=== PATIENT | female | born 1960 | race Caucasian/White ===

== ENCOUNTER 2016-12-12 14:04 | Emergency (ER) | payer MEDICARE, OTHER ==
[2016-12-12 14:04] VITALS: BMI 24.0
[2016-12-12 14:13] VITALS: BP 144/93; PULSE 75; RESP 16; TEMP 98.7; O2SAT 100
[2016-12-12 14:58] LABS: HEMATOCRIT 39.8 % (34.0-47.0); MEAN CELL VOLUME 82.4 fl (81.0-99.0); RED CELL DISTRIBUTION WIDTH 14.1 % (11.5-14.5); WHITE BLOOD COUNT 9.9 K/uL (4.8-10.8)
[2016-12-12 15:08] LABS: ALB/GLOB RATIO 1.2 (1.0-2.1); ALKALINE PHOSPHATASE 75 U/L (38-126); ALT/SGPT 18 U/L (9-52); AST/SGOT 28 U/L (14-36); BILIRUBIN,TOTAL 0.6 mg/dl (0.2-1.3); BLOOD UREA NITROGEN 11 mg/dl (7-17); CALCIUM 9.7 mg/dL (8.4-10.2); CARBON DIOXIDE 26 mmol/L (22-30); CHLORIDE 102 mmol/L (98-107); GFR AFRICAN-AMERICAN > 60; GLUCOSE,RANDOM 237 mg/dL (65-105); POTASSIUM 4.4 MMOL/L (3.6-5.0); SODIUM 142 mmol/l (132-148); TOTAL PROTEIN 7.4 G/DL (6.3-8.2)
[2016-12-12 16:09] LABS: RBC URINE 1 /hpf (0-3); URINE BILIRUBIN NEGATIVE (NEGATIVE); URINE BLOOD NEGATIVE (NEGATIVE); URINE COLOR YELLOW (YELLOW); URINE GLUCOSE (UA) >=500 mg/dL (Normal); URINE KETONE NEGATIVE (NEGATIVE); URINE LEUKOCYTE ESTERASE NEG Leu/uL (Negative); URINE PROTEIN NEGATIVE (NEGATIVE); URINE UROBILINOGEN 0.2-1.0 mg/dL (0.2-1.0)
--- NOTE | 2016-12-12 16:20 | ED PDOC ---
Syncope/Near Syncope/Dizzyness Time Seen by Provider: 12/12/16 14:27 Chief Complaint (Nursing): Dizziness/Lightheaded Chief Complaint (Provider): Dizziness History Per: Patient History/Exam Limitations: no limitations Onset/Duration Of Symptoms: Days (x2), Intermittent Episodes Current Symptoms Are (Timing): Still Present Fall Associated With With Symptoms: No Additional Complaint(s): Akanksha Diggs is a 56 year old female, with a past medical history inclusive of CAD, HTN, hypercholesterolemia, type II diabetes and Alzheimer's Dementia, who presents to the ED on 12/12/16, via EMS, for the evaluation of intermittent dizziness that she has experienced x2 days. History may be unreliable as secondary to patient's baseline mental status. Sensation, further described as "room spinning" is reportedly worse with laying down and has been occurring more frequently, prompting ED visit. Some nausea and upper abdominal pain also reported, in addition to a mildly productive cough. Denies fever, chills, headache, vision changes, chest pain, shortness of breath, vomiting, diarrhea or focal extremity weakness/numbness. PMD: none Past Medical History Reviewed: Historical Data, Nursing Documentation, Vital Signs Vital Signs: Last Vital Signs Temp 98.7 F 12/12/16 14:10 Pulse 75 12/12/16 14:10 Resp 16 12/12/16 14:10 BP 144/93 H 12/12/16 14:10 Pulse Ox 100 12/12/16 14:10 - Medical History PMH: Alzheimer's Disease, Asthma, CAD, Dementia, Diabetes (type II), HTN, Hypercholesterolemia, TIA Denies: HIV, Chronic Kidney Disease - Surgical History Surgical History: Hernia Repair (ventral, inguinal), (x3) - Family History Family History: States: Unknown Family Hx - Immunization History Hx Tetanus Toxoid Vaccination: No Hx Influenza Vaccination: No Hx Pneumococcal Vaccination: No - Home Medications Home Medications: Ambulatory Orders Medication Instructions Recorded Ergocalciferol (Vitamin D2) 50,000 unit PO ASDIR 09/02/14 [Vitamin D2] Aspirin [Aspirin EC] 81 mg PO DAILY #0 ect 09/03/14 Cyanocobalamin (Vitamin B-12) 1 tab PO DAILY #0 tab 09/03/14 [Vitamin B-12] Donepezil Hydrochloride [Aricept] 5 mg PO DAILY #0 tab 09/03/14 Glyburide/Metformin HCl 1 tab PO BID #0 tab 09/03/14 [Glyburide-Metformin 2.5-500 mg] Metoprolol Tartrate 25 mg PO DAILY #0 tab 09/03/14 Omeprazole 40 mg PO DAILY #0 ecc 09/03/14 Simvastatin [Zocor] 20 mg PO DAILY #0 tab 09/03/14 Zolpidem Tartrate [Ambien] 10 mg PO HS PRN #0 tab 09/03/14 Fexofenadine/Pseudoephedrine 1 each PO Q12H PRN #20 tab.er.12h 01/03/16 [Maribell-D 12 Hour Tablet] Flexeril 10 mg PO TID 01/03/16 Gabapentin [Neurontin] 1 tab PO DAILY 01/03/16 Lisinopril [Zestril] 1 tab PO DAILY 01/03/16 Sitagliptin Phosphate [Januvia] 1 tab PO DAILY 01/03/16 Dicyclomine [Dicyclomine HCl] 10 mg PO BID #12 cap 01/12/16 Ondansetron ODT [Zofran ODT] 4 mg PO Q8 PRN #12 odt 01/12/16 Ibuprofen [Motrin] 600 mg PO TID 7 Days 01/16/16 Meclizine [Meclizine*] 25 mg PO Q8 PRN #12 tab 07/18/16 Ondansetron [Zofran] 4 mg PO Q6H PRN #10 tab 07/18/16 Meclizine [Meclizine*] 25 mg PO Q6 PRN #30 tab 12/12/16 - Allergies Allergies/Adverse Reactions: Allergies Allergy/AdvReac Type Severity Reaction Status Date / Time iodine Allergy Verified 06/13/16 13:07 Penicillins Allergy Verified 06/13/16 13:07 Review of Systems ROS Statement: Except As Marked, All Systems Reviewed And Found Negative Constitutional: Negative for: Fever, Chills Eyes: Negative for: Vision Change Cardiovascular: Negative for: Chest Pain Respiratory: Positive for: Cough, Sputum. Negative for: Shortness of Breath Gastrointestinal: Positive for: Nausea, Abdominal Pain (upper). Negative for: Vomiting, Diarrhea Neurological: Positive for: Dizziness. Negative for: Weakness, Numbness, Headache Physical Exam - Reviewed Nursing Documentation Reviewed: Yes Vital Signs Reviewed: Yes - Physical Exam Appears: Positive for: Non-toxic, No Acute Distress Head Exam: Positive for: ATRAUMATIC, NORMOCEPHALIC Skin: Positive for: Normal Color, Warm, Dry Eye Exam: Positive for: Normal appearance, EOMI, PERRL. Negative for: Nystagmus ENT: Positive for: Normal ENT Inspection (moist mucous membranes) Neck: Positive for: Normal, Painless ROM, Supple Cardiovascular/Chest: Positive for: Regular Rate, Rhythm. Negative for: Murmur Respiratory: Positive for: Normal Breath Sounds. Negative for: Respiratory Distress Gastrointestinal/Abdominal: Positive for: Normal Exam, Soft. Negative for: Tenderness, Mass, Guarding, Rebound Back: Positive for: Normal Inspection Extremity: Positive for: Normal ROM (FROM x4 extremities). 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 Negative for: Motor/Sensory Deficits, Aphasia, Facial Droop - Laboratory Results Result Diagrams: 12/12/16 14:40 12/12/16 14:40 - ECG O2 Sat by Pulse Oximetry: 100 (RA) Pulse Ox Interpretation: Normal Medical Decision Making Medical Decision Makin:27 Initial Impression: dizziness, cough Initial Plan: * EKG * CXR * Labs * Troponin I * Urinalysis * Urine Culture * Meclizine 50mg PO * Reevaluation * Pt reports feeling dizzy on re-evaluation after meclizine. Discussed with Dr. Hall. Ativan ordered. 19:50 Pt reports feeling much better. Discussed d/c with Dr. Vohra. Moreno to discharge if CT normal. Scribe Attestation: Documented by Michelle Garcia, acting as a scribe for Michelle Ellison PA-C. Provider Scribe Attestation: All medical record entries made by the Scribe were at my direction and personally dictated by me. I have reviewed the chart and agree that the record accurately reflects my personal performance of the history, physical exam, medical decision making, and the department course for this patient. I have also personally directed, reviewed, and agree with the discharge instructions and disposition. Disposition - Clinical Impression Clinical Impression: Vertigo - Patient ED Disposition Is Patient to be Admitted: Transfer of Care - Disposition Disposition: Routine/Home Disposition Time: 19:51 Condition: GOOD Prescriptions: Meclizine [Meclizine*] 25 mg PO Q6 PRN #30 tab PRN Reason: Dizziness Instructions: Vertigo (ED)
--- NOTE | 2016-12-12 20:05 | CARD ---
APPROVED REPORT EKG Measurement Heart [id number] <Conclusion> Normal sinus rhythm Normal ECG
== END 2016-12-12 20:57 | disposition home or self-care (01) ==
LOC: H.ER 14:04
DX: R42 Dizziness and giddiness (principal); I10 Essential (primary) hypertension; E78.00 Pure hypercholesterolemia, unspecified; E11.9 Type 2 diabetes mellitus without complications; G30.9 Alzheimer's disease, unspecified; I25.10 Atherosclerotic heart disease of native coronary artery without angina pectoris; Z79.82 Long term (current) use of aspirin; Z86.73 Personal history of transient ischemic attack (TIA), and cerebral infarction without residual deficits; R10.10 Upper abdominal pain, unspecified; R11.0 Nausea; R05 Cough

== ENCOUNTER 2017-03-27 20:06 | Inpatient (IN) | payer MEDICARE, MEDICAID ==
[2017-03-27 20:07] VITALS: BMI 24.0
[2017-03-27 20:35] VITALS: O2SAT 99
--- NOTE | 2017-03-27 21:46 | ED PDOC ---
HPI: Headache Time Seen by Provider: 03/27/17 21:03 Chief Complaint (Nursing): Headache Chief Complaint (Provider): Headache History Per: Patient History/Exam Limitations: no limitations Onset/Duration Of Symptoms: Days (3) Current Symptoms Are (Timing): Still Present Associated Symptoms: Photophobia Additional Complaint(s): The patient is a 57yo female, Past medical history of Hypertension, DM, presents to the ED for evaluation of headache radiating to her neck, with associated weakness and photophobia. Patient reports her pain as stabbing and worsening over the days; patient reports she has had similar symptoms in the past and has had CT scan's of her head. Patient also reports for the past week, she has had visual and auditory hallucinations; she denies any drug usage. Patient also admits to suicidal ideation in the past. Currently, offers no additional medical complaints. Past Medical History Reviewed: Historical Data, Nursing Documentation, Vital Signs Vital Signs: Last Vital Signs Temp 97.9 F 03/27/17 20:30 Pulse 77 03/27/17 20:30 Resp 18 03/27/17 20:30 BP 139/82 03/27/17 20:30 Pulse Ox 99 03/27/17 20:30 - Medical History PMH: Alzheimer's Disease, Asthma, CAD, Dementia, Diabetes (type II), HTN, Hypercholesterolemia, TIA Denies: HIV, Chronic Kidney Disease - Surgical History Surgical History: Hernia Repair (ventral, inguinal), (x3) - Family History Family History: States: Unknown Family Hx - Immunization History Hx Tetanus Toxoid Vaccination: No Hx Influenza Vaccination: No Hx Pneumococcal Vaccination: No - Home Medications Home Medications: Ambulatory Orders Medication Instructions Recorded Ergocalciferol (Vitamin D2) 50,000 unit PO ASDIR 09/02/14 [Vitamin D2] Aspirin [Aspirin EC] 81 mg PO DAILY #0 ect 09/03/14 Cyanocobalamin (Vitamin B-12) 1 tab PO DAILY #0 tab 09/03/14 [Vitamin B-12] Donepezil Hydrochloride [Aricept] 5 mg PO DAILY #0 tab 09/03/14 Glyburide/Metformin HCl 1 tab PO BID #0 tab 09/03/14 [Glyburide-Metformin 2.5-500 mg] Metoprolol Tartrate 25 mg PO DAILY #0 tab 01/01/15 Omeprazole 40 mg PO DAILY #0 ecc 09/03/14 Simvastatin [Zocor] 20 mg PO DAILY #0 tab 09/03/14 Zolpidem Tartrate [Ambien] 10 mg PO HS PRN #0 tab 09/03/14 Fexofenadine/Pseudoephedrine 1 each PO Q12H PRN #20 tab.er.12h 01/03/16 [Maribell-D 12 Hour Tablet] Flexeril 10 mg PO TID 01/03/16 Gabapentin [Neurontin] 1 tab PO DAILY 01/03/16 Lisinopril [Zestril] 1 tab PO DAILY 01/03/16 Sitagliptin Phosphate [Januvia] 1 tab PO DAILY 01/03/16 Dicyclomine [Dicyclomine HCl] 10 mg PO BID #12 cap 01/12/16 Ondansetron ODT [Zofran ODT] 4 mg PO Q8 PRN #12 odt 01/12/16 Ibuprofen [Motrin] 600 mg PO TID 7 Days 01/16/16 Meclizine [Meclizine*] 25 mg PO Q8 PRN #12 tab 07/18/16 Ondansetron [Zofran] 4 mg PO Q6H PRN #10 tab 07/18/16 Meclizine [Meclizine*] 25 mg PO Q6 PRN #30 tab 12/12/16 Albuterol HFA [Ventolin HFA 90 2 puff IH [id number] PRN #1 pkg 01/17/17 mcg/actuation (8 g)] predniSONE [Prednisone] 40 mg PO DAILY #4 tab 01/17/17 - Allergies Allergies/Adverse Reactions: Allergies Allergy/AdvReac Type Severity Reaction Status Date / Time iodine Allergy Verified 06/13/16 13:07 Penicillins Allergy Verified 06/13/16 13:07 Review of Systems ROS Statement: Except As Marked, All Systems Reviewed And Found Negative Constitutional: Positive for: Weakness Musculoskeletal: Positive for: Neck Pain Neurological: Positive for: Headache Psych: Positive for: Suicidal ideation, Other (auditory and visual hallucinations) Physical Exam - Reviewed Nursing Documentation Reviewed: Yes Vital Signs Reviewed: Yes - Physical Exam Appears: Positive for: Non-toxic Head Exam: Positive for: ATRAUMATIC, NORMAL INSPECTION, NORMOCEPHALIC Skin: Positive for: Normal Color, Warm, DRY Eye Exam: Positive for: EOMI, Normal appearance, PERRL Neck: Positive for: Normal, Supple Cardiovascular/Chest: Positive for: Regular Rate, Rhythm Respiratory: Positive for: Normal Breath Sounds. Negative for: Respiratory Distress Gastrointestinal/Abdominal: Positive for: Normal Exam, Soft. Negative for: Tenderness Extremity: Positive for: Normal ROM Neurologic/Psych: Positive for: Alert, head of acquisitions II-XII, Oriented, Mood/Affect ( Tearful), Other (+ Feelings of depression). Negative for: Motor/Sensory Deficits - Laboratory Results Result Diagrams: 03/27/17 23:03 03/27/17 23:03 - ECG O2 Sat by Pulse Oximetry: 99 (RA) Pulse Ox Interpretation: Normal Medical Decision Making Medical Decision Making: Time: 2114 Impression: Headache, crisis eval Plan: -- CT Head -- Labs -- Chest x-ray -- 1:1 obs Reassess [id number] * ED OBS ADMISSION All further documentation will take place in the ED OBS note. Scribe Attestation: Documented by Antonella Verma acting as a scribe for Elva Jackson MD. Provider Attestation: All medical record entries made by the Scribe were at my direction and personally dictated by me. I have reviewed the chart and agree that the record accurately reflects my personal performance of the history, physical exam, medical decision making, and the department course for this patient. I have also personally directed, reviewed, and agree with the discharge instructions and disposition. ED OBSERVATION Date of observation admission: 03/27/17 Time of observation admission: 23:00 - Observation admission statement Patient is being placed in observation because:: Pending medical clearance and crisis eval - Goals of Observation Goals of observation are:: Crisis eval and medical clearanc - Progress Note Progress Note: 03/27/17 23:46 Chest x-ray read by provider: NAD Patient is medically cleared/stable for psychiatric evaluation. Disposition - Clinical Impression Clinical Impression: Depression - Disposition Disposition: Transfer of Care Disposition Time: 00:00 Condition: STABLE Patient Signed Over To: Dustin Montoya Y Handoff Comments: Pending Crisis evaluation. - Pt Status Changed To: Hospital Disposition Of: Observation
[2017-03-27 22:57] LABS: RBC URINE 2 /hpf (0-3); URINE BILIRUBIN NEGATIVE (NEGATIVE); URINE BLOOD NEGATIVE (NEGATIVE); URINE COLOR YELLOW (YELLOW); URINE GLUCOSE (UA) NEG (Normal); URINE KETONE NEGATIVE (NEGATIVE); URINE LEUKOCYTE ESTERASE NEG Leu/uL (Negative); URINE PROTEIN NEGATIVE (NEGATIVE); URINE UROBILINOGEN 0.2-1.0 mg/dL (0.2-1.0); WBC URINE < 1 /hpf (0-5)
--- NOTE | 2017-03-27 23:02 | CT ---
EXAM: CT Head Without Intravenous Contrast CLINICAL HISTORY: 57 years old, female; Pain and signs and symptoms; Dizziness; Headache; Headache not specified; Additional info: PEREZ. Sent prior report TECHNIQUE: Axial computed tomography images of the head/brain without intravenous contrast. This CT exam was performed using one or more of the following dose reduction techniques: automated exposure control, adjustment of the mA and/or kV according to patient size, and/or use of iterative reconstruction technique. Coronal and sagittal reformatted images were created and reviewed. COMPARISON: CT - HEAD W/O CONTRAST 07/18/2016 5:18:36 PM FINDINGS: Brain: Minimal atrophy. No intracranial hemorrhage. No mass. Minimal decreased attenuation within periventricular white matter. No definite edema. Ventricles: No hydrocephalus. Bones/joints: No acute fracture. Soft tissues: Unremarkable. Sinuses: No acute sinusitis. Mastoid air cells: No mastoid effusion. Orbits: Unremarkable as visualized. IMPRESSION: 1. Nonspecific white matter changes. Acute infarction may be CT occult within first 24 hours. If a focal deficit persists, consider followup CT or MRI for further evaluation. 2. Incidental/non-acute findings are described above.
[2017-03-27 23:07] LABS: BASO % 0.6 % (0.0-2.0); EOS # 0.1 K/uL (0.0-0.7); EOS % 1.6 % (0.0-4.0); HEMATOCRIT 38.5 % (34.0-47.0); LYMPH # 3.8 K/uL (1.0-4.3); LYMPH % 49.1 % (20.0-40.0); MEAN CELL VOLUME 84.1 fl (81.0-99.0); MEAN CORPUSCULAR HEMOGLOBIN 28.6 pg (27.0-31.0); MEAN PLATELET VOLUME 11.2 fl (7.2-11.7); MONO # 0.5 K/uL (0.0-0.8); MONO % 6.1 % (0.0-10.0); NEUT # 3.3 K/uL (1.8-7.0); NEUT % 42.6 % (50.0-75.0); NRBC % 0.1 % (0.0-0.0); WHITE BLOOD COUNT 7.8 K/uL (4.8-10.8)
[2017-03-27 23:19] LABS: ALB/GLOB RATIO 1.5 (1.0-2.1); ALCOHOL SERUM < 10 mg/dl (0-10); ALKALINE PHOSPHATASE 64 U/L (38-126); ALT/SGPT 33 U/L (9-52); AST/SGOT 20 U/L (14-36); BILIRUBIN,TOTAL 0.3 mg/dl (0.2-1.3); BLOOD UREA NITROGEN 12 mg/dl (7-17); CALCIUM 9.2 mg/dL (8.4-10.2); CARBON DIOXIDE 22 mmol/L (22-30); CHLORIDE 109 mmol/L (98-107); GFR AFRICAN-AMERICAN > 60; GLUCOSE,RANDOM 96 mg/dL (65-105); POTASSIUM 3.9 MMOL/L (3.6-5.0); SODIUM 142 mmol/l (132-148); TOTAL PROTEIN 6.9 G/DL (6.3-8.2)
--- NOTE | 2017-03-28 00:28 | ED PDOC ---
- Laboratory Results Result Diagrams: 03/27/17 23:03 03/27/17 23:03 - ECG O2 Sat by Pulse Oximetry: 99 (RA) Medical Decision Making Medical Decision Makin Patient signed out to me from Dr. Jackson pending crisis eval. [address] Lanier for depression. ASA and Tylenol levels: negative Scribe Attestation: Documented by Anita Love acting as a scribe for Dustin Montoya MD. Scribe Attestation: All medical record entries made by the Scribe were at my direction and personally dictated by me. I have reviewed the chart and agree that the record accurately reflects my personal performance of the history, physical exam, medical decision making, and the department course for this patient. I have also personally directed, reviewed, and agree with the discharge instructions and disposition. Disposition Counseled Patient/Family Regarding: Studies Performed, Diagnosis - Clinical Impression Clinical Impression: Depression - POA Present On Arrival: None - Disposition Disposition: Admitted as In-Patient (under Dr. Lanier) Disposition Time: 01:00 Condition: FAIR
[2017-03-28] MEDS ORDERED: Magnesium Hydroxide Susp 30 ml UD PO PRN (07:07)
[2017-03-28] MEDS ORDERED: DiphenhydrAMINE 50 mg/ml Inj IM PRN (07:07)
[2017-03-28 09:00] LABS: T4 7.65 ug/dl (5.5-11.0)
--- NOTE | 2017-03-28 11:13 | RAD ---
HISTORY: Medical clearance COMPARISON: PRIOR CHEST RADIOGRAPHS 09/02/2014. TECHNIQUE: Chest PA and lateral FINDINGS: LUNGS: No active pulmonary disease. PLEURA: No significant pleural effusion identified. No pneumothorax apparent. CARDIOVASCULAR: Normal. OSSEOUS STRUCTURES: No significant abnormalities. VISUALIZED UPPER ABDOMEN: Normal. OTHER FINDINGS: None. IMPRESSION: No bilateral cardiopulmonary disease appreciated or significant interval change compared to 09/02/2014 chest radiographs. Yes.
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
--- NOTE | 2017-03-28 13:23 | CARD ---
APPROVED REPORT EKG Measurement Heart [id number] <Conclusion> Normal sinus rhythm Low voltage QRS Borderline ECG
[2017-03-28] MEDS ORDERED: Albuterol HFA 90 mcg/actuation (8 g) IH PRN (16:25)
[2017-03-28] MEDS ORDERED: Patient's Own Med (Glyburide/Metformin Hcl [Glyburide-Metformin 2.5-500 Mg] 1 TAB) PO SCH (17:00)
--- NOTE | 2017-03-28 18:13 | CP.PCM.CON ---
History of Present Illness - History of Present Illness History of Present Illness: Mega Mae, ID: [id number] Pt is a 57 yo F with PMH diabetes, HTN, HLD, CAD s/p cardiac cath, asthma, arthritis, alzheimers who presented to ED with complaints of headache radiating to the neck and shoulders. Pain is described as pulsating 8/10, started 5 days ago. Sitting in a dark room alleviates pain, loud noises and light aggravate pain, no associated symptoms. Pt reports that she tried advil and tylenol with no relief. Pt reports that the pain started after she had a lot of stress in the home, when she thinks too much about her issues in the home with her son and . States that she overall feels weak. Due to pt's mood and behavior during interview (appeared disinterested in speaking to historic interpreter and listening to historic interpreter), reliability of patient as a historian is questionable. PMH: Alzheimers, HTN, HLD, asthma, arthritis, Allergies: penicillin (anaphylactic as per pt description "can't breathe and lose consciousness") Social Hx: former smoker for over 20 yrs social EtOH 2-3 drinks on social occasion denies drugs, painkillers Surg Hx: x3, hernia repair Family Hx: grandmother and mother- stroke. sister- [place]. LMP- 20 y ago, . ED course: vitals stable in ED EKG, CXR unremarkable CT head: nonspecific white matter changes. acute infarction may be CT occult within 24 hrs. If focal deficit persists, consider followup CT or MRI. Review of Systems - Review of Systems All systems: reviewed and no additional remarkable complaints except - Constitutional Constitutional: Weakness Additional comments: generalized weakness - EENT Eyes: absent: Change in Vision Additional comments: thinks eyes are "puffy" - Respiratory Respiratory: absent: Dyspnea Additional comments: SOB when asthma acts up, relief with inhaler - Gastrointestinal Gastrointestinal: Constipation - Neurological Neurological: absent: Lack of Coordination - Psychiatric Psychiatric: Depression Past Patient History - Infectious Disease Hx of Infectious Diseases: None - Tetanus Immunizations Tetanus Immunization: Unknown - Past Medical History & Family History Past Medical History?: Yes - Past Social History Smoking Status: Former Smoker Alcohol: Occasional Drugs: Denies - CARDIAC Hx Cardiac Disorders: Yes Hx Hypertension: Yes - PULMONARY Hx Respiratory Disorders: Yes Hx Asthma: Yes - NEUROLOGICAL Hx Neurological Disorder: Yes Hx Alzheimer's Disease: Yes Hx Dementia: Yes Hx Transient Ischemic Attacks (TIA): Yes - HEENT Hx HEENT Problems: No - RENAL Hx Chronic Kidney Disease: No - ENDOCRINE/METABOLIC Hx Endocrine Disorders: Yes Hx Diabetes Mellitus Type 2: Yes - HEMATOLOGICAL/ONCOLOGICAL Hx Blood Disorders: No Hx Human Immunodeficiency Virus (HIV): No - INTEGUMENTARY Hx Dermatological Problems: No - MUSCULOSKELETAL/RHEUMATOLOGICAL Hx Musculoskeletal Disorders: Yes Hx Falls: No Hx Osteoarthritis: Yes - GASTROINTESTINAL Hx Gastrointestinal Disorders: Yes Other/Comment: Hernia - GENITOURINARY/GYNECOLOGICAL Hx Genitourinary Disorders: No - PSYCHIATRIC Hx Substance Use: No - SURGICAL HISTORY Hx Cardiac Catheterization: Yes (8-10YRS AGO) Hx Section: Yes (X3) Hx Herniorrhaphy: Yes Hx Hysterectomy: Yes Other/Comment: Fibroids - ANESTHESIA Hx Anesthesia: Yes Hx Anesthesia Reactions: No Hx Malignant Hyperthermia: No Meds Allergies/Adverse Reactions: Allergies Allergy/AdvReac Type Severity Reaction Status Date / Time iodine Allergy Verified 06/13/16 13:07 Penicillins Allergy Verified 06/13/16 13:07 - Medications Medications: Current Medications Acetaminophen (Tylenol 325mg Tab) 650 mg PO Q4 PRN PRN Reason: Pain, moderate (4-7) Last Admin: 03/28/17 13:58 Dose: 650 mg Al Hydrox/Mg Hydrox/Simethicone (Maalox Plus 30 Ml) 30 ml PO Q4 PRN PRN Reason: Dyspepsia Albuterol (Ventolin Hfa 90 Mcg/Actuation (8 G)) 2 puff IH Q6H PRN PRN Reason: Shortness of Breath Atorvastatin Calcium (Lipitor) 10 mg PO DAILY [facility] Diphenhydramine HCl (Benadryl) 50 mg IM Q6 PRN PRN Reason: Extrapyramidal S/S Unable PO Diphenhydramine HCl (Benadryl) 50 mg PO Q6 PRN PRN Reason: Extrapyramidal Symptoms Donepezil HCl (Aricept) 5 mg PO DAILY [facility] Glyburide (Micronase) 2.5 mg PO BID [facility] Last Admin: 03/28/17 17:35 Dose: 2.5 mg Haloperidol (Haldol) 5 mg PO Q4 PRN PRN Reason: Agitation Haloperidol Lactate (Haldol) 5 mg IM Q4 PRN PRN Reason: Agitation, Unable to Take PO Lisinopril (Zestril) 20 mg PO DAILY [facility] Lorazepam (Ativan) 2 mg IM Q4 PRN PRN Reason: Anxiety/Agitation,Unable PO Lorazepam (Ativan) 2 mg PO Q4 PRN PRN Reason: Anxiety/Agitation Magnesium Hydroxide (Milk Of Magnesia) 30 ml PO HS PRN PRN Reason: Constipation Metformin HCl (Glucophage) 500 mg PO BID [facility] Last Admin: 03/28/17 17:35 Dose: 500 mg Metoprolol Succinate (Toprol Xl) 25 mg PO DAILY [facility] Quetiapine Fumarate (Seroquel) 25 mg PO HS [facility] Sertraline HCl (Zoloft) 25 mg PO DAILY [facility] Last Admin: 03/28/17 13:56 Dose: 25 mg Sitagliptin Phosphate (Januvia) 100 mg PO DAILY [facility] Physical Exam - Constitutional Appears: Unkempt, Agitated Additional comments: tearful, appeared annoyed at interview, disinterested in speaking and clarifying statements - Head Exam Head Exam: ATRAUMATIC, NORMAL INSPECTION - Eye Exam Eye Exam: EOMI, PERRL - ENT Exam ENT Exam: Mucous Membranes Moist - Respiratory Exam Respiratory Exam: Clear to Auscultation Bilateral, NORMAL BREATHING PATTERN - Cardiovascular Exam Cardiovascular Exam: REGULAR RHYTHM, +S1, +S2 - GI/Abdominal Exam GI & Abdominal Exam: Normal Bowel Sounds, Soft. absent: Distended Additional comments: hernia repair scar noted - Extremities Exam Extremities exam: Positive for: normal capillary refill, normal inspection. Negative for: calf tenderness, joint swelling, pedal edema - Back Exam Back exam: NORMAL INSPECTION - Neurological Exam Neurological exam: Alert Additional comments: no focal deficits in strength noted - Psychiatric Exam Psychiatric exam: Depressed, Flat Affect - Skin Skin Exam: Dry, Intact, Normal Color, Warm Results - Vital Signs Recent Vital Signs: Last Vital Signs Temp 97.7 F 03/28/17 16:47 Pulse 69 03/28/17 16:47 Resp 18 03/28/17 16:47 BP 136/64 03/28/17 16:47 Pulse Ox 99 03/28/17 06:40 - Labs Result Diagrams: 03/27/17 23:03 03/27/17 23:03 Labs: Laboratory Results - last 24 hr 03/28/17 03/28/17 03/28/17 07:30 07:30 07:30 Hemoglobin A1c 8.2 H Triglycerides 95 D Cholesterol 108 LDL Cholesterol Direct 46 HDL Cholesterol 45 Thyroxine (T4) 7.65 TSH 3rd Generation 2.00 RPR Nonreactive Assessment & Plan - Assessment and Plan (Free Text) Assessment: Pt is a 57 yo F with PMH diabetes, HTN, HLD, CAD s/p cardiac cath, asthma, arthritis, alzheimers who presented to ED with complaints of headache radiating to the neck and shoulders. Expressed suicidal ideation in the ED, was admitted to psych inpt. Plan: 1) Headache -reviewed head CT -will re-examine pt in the morning, possible repeat head CT tomorrow 2)Diabetes -restart home meds 3)Hypertension -restart home meds 4)Alzheimer's/dementia -restart home meds 5) Hyperlipidemia -restart home meds 6) Depression -mgmt by primary inpt psych team
[2017-03-29] MEDS: Metoprolol Succinate 25 mg XL Tab PO SCH (10:08)
--- NOTE | 2017-03-29 12:28 | PCM.PYCHPN ---
Psychiatric Progress Note - Psychiatric Progress Note Patient seen today, length of contact: discussed with team Patient Chief Complaint: better Problems Identified/Issues Discussed: pt with fair sleep. tried to attend group today. affect is brighter than upon admission. no c/o side effects. Medication Change: No Medical Record Reviewed: Yes Mental Status Examination - Cognitive Function Orientation: Person, Place, Situation, Time Memory: Intact Attention: WNL Concentration: WNL Association: WNL Fund of Knowledge: [facility] Decription of patient's judgement and insights: fair - Mood Mood: Depressed - Affect Affect: Constricted, Depressed - Formal Thought Process Formal Thought Process: Hallucinations (voices/ strange presence) - Suicidal Ideation Suicidal Ideation: No Plan: denies currently - Homicidal Ideation Homicidal Ideation: No Goal/Treatment Plan - Goal/Treatment Plan Need for Continued Stay: Remain at risks for inpatient hospitalization, Severe functional impairment Progress Toward Problem(s) and Goals/Treatment Plan: mdd recurrent severe continue with current treatment t/c increasing seroquel as needed disposition planning Estimated Date of D/C: 04/04/17
--- NOTE | 2017-03-29 17:16 | CP.PCM.PN ---
Subjective - Date & Time of Evaluation Date of Evaluation: 03/29/17 Time of Evaluation: 09:30 - Subjective Subjective: Pt was seen and examined at bedside. Appeared in no acute distress, but tearful and sad. Stated she was able to sleep well and was doing "ok." Complained of headache once asked if headache had resolved. Denied sob, chest pain, abdominal pain. As per nursing staff on unit, pt has not complained of headache. Objective - Vital Signs/Intake and Output Vital Signs (last 24 hours): Temp Pulse Resp BP Pulse Ox 97.6 F 63 18 120/72 99 03/29/17 16:37 03/29/17 16:37 03/29/17 16:37 03/29/17 16:37 03/29/17 09:52 - Medications Medications: Current Medications Acetaminophen (Tylenol 325mg Tab) 650 mg PO Q4 PRN PRN Reason: Pain, moderate (4-7) Last Admin: 03/28/17 13:58 Dose: 650 mg Al Hydrox/Mg Hydrox/Simethicone (Maalox Plus 30 Ml) 30 ml PO Q4 PRN PRN Reason: Dyspepsia Albuterol (Ventolin Hfa 90 Mcg/Actuation (8 G)) 2 puff IH Q6H PRN PRN Reason: Shortness of Breath Atorvastatin Calcium (Lipitor) 10 mg PO DAILY [facility] Last Admin: 03/29/17 10:08 Dose: 10 mg Diphenhydramine HCl (Benadryl) 50 mg IM Q6 PRN PRN Reason: Extrapyramidal S/S Unable PO Diphenhydramine HCl (Benadryl) 50 mg PO Q6 PRN PRN Reason: Extrapyramidal Symptoms Donepezil HCl (Aricept) 5 mg PO DAILY [facility] Last Admin: 03/29/17 10:10 Dose: 5 mg Glyburide (Micronase) 2.5 mg PO BID [facility] Last Admin: 03/29/17 10:09 Dose: 2.5 mg Haloperidol (Haldol) 5 mg PO Q4 PRN PRN Reason: Agitation Haloperidol Lactate (Haldol) 5 mg IM Q4 PRN PRN Reason: Agitation, Unable to Take PO Lisinopril (Zestril) 20 mg PO DAILY [facility] Last Admin: 03/29/17 10:09 Dose: 20 mg Lorazepam (Ativan) 2 mg IM Q4 PRN PRN Reason: Anxiety/Agitation,Unable PO Lorazepam (Ativan) 2 mg PO Q4 PRN PRN Reason: Anxiety/Agitation Magnesium Hydroxide (Milk Of Magnesia) 30 ml PO HS PRN PRN Reason: Constipation Metformin HCl (Glucophage) 500 mg PO BID [facility] Last Admin: 03/29/17 10:09 Dose: 500 mg Metoprolol Succinate (Toprol Xl) 25 mg PO DAILY [facility] Last Admin: 03/29/17 10:08 Dose: 25 mg Quetiapine Fumarate (Seroquel) 25 mg PO HS [facility] Last Admin: 03/28/17 21:09 Dose: 25 mg Sertraline HCl (Zoloft) 25 mg PO DAILY [facility] Last Admin: 03/29/17 10:10 Dose: 25 mg Sitagliptin Phosphate (Januvia) 100 mg PO DAILY [facility] Last Admin: 03/29/17 10:10 Dose: 100 mg - Labs Labs: PT 11.9 Seconds (9.8-13.1) 03/27/17 23:03 INR 1.1 (0.9-1.2) 03/27/17 23:03 APTT 35.0 Seconds (25.6-37.1) 03/27/17 23:03 - Constitutional Appears: Unkempt - Head Exam Head Exam: ATRAUMATIC - Eye Exam Eye Exam: EOMI, PERRL - ENT Exam ENT Exam: Mucous Membranes Moist - Respiratory Exam Respiratory Exam: Clear to Ausculation Bilateral, NORMAL BREATHING PATTERN - Cardiovascular Exam Cardiovascular Exam: +S1, +S2 - GI/Abdominal Exam GI & Abdominal Exam: Soft, Normal Bowel Sounds - Extremities Exam Extremities Exam: Normal Capillary Refill, Normal Inspection. absent: Calf Tenderness, Pedal Edema, Tenderness - Neurological Exam Neurological Exam: Alert, Awake Additional comments: no focal deficits in strength noted - Psychiatric Exam Psychiatric exam: Depressed, Flat Affect - Skin Skin Exam: Dry, Intact, Normal Color, Warm Assessment and Plan - Assessment and Plan (Free Text) Assessment: Pt is a 57 yo F with PMH diabetes, HTN, HLD, CAD s/p cardiac cath, asthma, arthritis, alzheimers who presented to ED with complaints of headache radiating to the neck and shoulders. Expressed suicidal ideation in the ED, was admitted to psych inpt. Plan: 1) Headache -reviewed head CT on admission; stated that if symptoms persist, repeat -since pt reporting continued headache, repeat head CT -acetaminophen PRN 2)Diabetes -continue home meds 3)Hypertension -continue home meds 4)Alzheimer's/dementia -continue home meds 5) Hyperlipidemia -continue home meds 6) Depression -mgmt by primary inpt psych team
[2017-03-30] MEDS: Metoprolol Succinate 25 mg XL Tab PO SCH (09:26)
[2017-03-30] MEDS ORDERED: Glucagon Recombinant 1 mg Inj IM PRN (09:36)
[2017-03-30] MEDS ORDERED: Dextrose 50% SYRINGE Inj (50 ml) IV PRN (09:36)
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
[2017-03-30] MEDS: Insulin Regular 100 units/ml SC SCH ×3 (11:00→21:30)
--- NOTE | 2017-03-30 12:36 | CT ---
PROCEDURE: CT HEAD WITHOUT CONTRAST. HISTORY: F/U FROM PREVIOUS IMAGING COMPARISON: 03/27/2017 TECHNIQUE: Axial computed tomography images were obtained through the head/brain without intravenous contrast. Radiation dose: Total exam DLP = 778.15 mGy-cm. This CT exam was performed using one or more of the following dose reduction techniques: Automated exposure control, adjustment of the mA and/or kV according to patient size, and/or use of iterative reconstruction technique. FINDINGS: HEMORRHAGE: No intracranial hemorrhage. BRAIN: No mass effect or edema. No atrophy. Minimal periventricular white matter lucency adjacent to frontal horns of lateral ventricles, consistent with chronic microvascular ischemic change. Appropriate for age. No evidence of acute infarct VENTRICLES: Unremarkable. No hydrocephalus. CALVARIUM: Unremarkable. PARANASAL SINUSES: Unremarkable as visualized. No significant inflammatory changes. MASTOID AIR CELLS: Unremarkable as visualized. No inflammatory changes. OTHER FINDINGS: None. IMPRESSION: No evidence of acute infarct. Minimal chronic white matter ischemic change. Otherwise unremarkable examination.
[2017-03-31] MEDS: Insulin Regular 100 units/ml SC SCH ×4 (06:40→21:22)
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
[2017-03-31] MEDS: Metoprolol Succinate 25 mg XL Tab PO SCH (09:19)
[2017-03-31] MEDS: Alum-Mag Hydrox-Simethicone Susp (30 mL) PO PRN (16:15)
[2017-04-01] MEDS: Insulin Regular 100 units/ml SC SCH ×4 (06:50→21:13)
[2017-04-01] MEDS: Metoprolol Succinate 25 mg XL Tab PO SCH (09:47)
--- NOTE | 2017-04-01 12:29 | CP.PCM.PN ---
Subjective - Date & Time of Evaluation Date of Evaluation: 04/01/17 Time of Evaluation: 09:20 - Subjective Subjective: Pt was seen and examined at bedside. Appeared in no acute distress, appeared to be in much better mood. Stated that her headaches have been well controlled with Motrin. Pt was encouraged to let staff know if she has headaches, so that she could get Motrin. Denied sob, chest pain, abdominal pain. Objective - Vital Signs/Intake and Output Vital Signs (last 24 hours): Temp Pulse Resp BP Pulse Ox 97.5 F L 65 20 102/69 99 04/01/17 09:00 04/01/17 09:48 04/01/17 09:00 04/01/17 09:48 03/31/17 17:00 - Medications Medications: Current Medications Acetaminophen (Tylenol 325mg Tab) 650 mg PO Q4 PRN PRN Reason: Pain, moderate (4-7) Last Admin: 03/30/17 12:11 Dose: 650 mg Al Hydrox/Mg Hydrox/Simethicone (Maalox Plus 30 Ml) 30 ml PO Q4 PRN PRN Reason: Dyspepsia Last Admin: 03/31/17 16:15 Dose: 30 ml Albuterol (Ventolin Hfa 90 Mcg/Actuation (8 G)) 2 puff IH Q6H PRN PRN Reason: Shortness of Breath Atorvastatin Calcium (Lipitor) 10 mg PO DAILY [facility] Last Admin: 04/01/17 09:47 Dose: 10 mg Dextrose (Dextrose 50% Inj) 0 ml IV STAT PRN; Protocol PRN Reason: Hyglycemia Protocol Dextrose (Glutose 15) 0 gm PO ONCE PRN; Protocol PRN Reason: Hypoglycemia Protocol Diphenhydramine HCl (Benadryl) 50 mg IM Q6 PRN PRN Reason: Extrapyramidal S/S Unable PO Diphenhydramine HCl (Benadryl) 50 mg PO Q6 PRN PRN Reason: Extrapyramidal Symptoms Donepezil HCl (Aricept) 5 mg PO DAILY [facility] Last Admin: 04/01/17 09:46 Dose: 5 mg Glucagon (Glucagen Diagnostic Kit) 0 mg IM STAT PRN; Protocol PRN Reason: Hypoglycemia Protocol Glyburide (Micronase) 2.5 mg PO BID [facility] Last Admin: 03/30/17 09:26 Dose: 2.5 mg Haloperidol (Haldol) 5 mg PO Q4 PRN PRN Reason: Agitation Haloperidol Lactate (Haldol) 5 mg IM Q4 PRN PRN Reason: Agitation, Unable to Take PO Ibuprofen (Motrin Tab) 600 mg PO Q6 PRN PRN Reason: Headache Last Admin: 03/30/17 14:45 Dose: 600 mg Insulin Human Regular (Humulin R) 0 units SC ACHS [facility] PRN Reason: Protocol Last Admin: 04/01/17 06:50 Dose: Not Given Lisinopril (Zestril) 20 mg PO DAILY [facility] Last Admin: 04/01/17 09:48 Dose: 20 mg Lorazepam (Ativan) 2 mg IM Q4 PRN PRN Reason: Anxiety/Agitation,Unable PO Lorazepam (Ativan) 2 mg PO Q4 PRN PRN Reason: Anxiety/Agitation Magnesium Hydroxide (Milk Of Magnesia) 30 ml PO HS PRN PRN Reason: Constipation Metformin HCl (Glucophage) 500 mg PO BID [facility] Last Admin: 04/01/17 09:46 Dose: 500 mg Metoprolol Succinate (Toprol Xl) 25 mg PO DAILY [facility] Last Admin: 04/01/17 09:47 Dose: 25 mg Quetiapine Fumarate (Seroquel) 50 mg PO HS [facility] Last Admin: 03/31/17 21:38 Dose: 50 mg Sertraline HCl (Zoloft) 50 mg PO DAILY [facility] Last Admin: 04/01/17 09:48 Dose: 50 mg Sitagliptin Phosphate (Januvia) 100 mg PO DAILY [facility] Last Admin: 04/01/17 09:46 Dose: 100 mg - Labs Labs: PT 11.9 Seconds (9.8-13.1) 03/27/17 23:03 INR 1.1 (0.9-1.2) 03/27/17 23:03 APTT 35.0 Seconds (25.6-37.1) 03/27/17 23:03 - Constitutional Appears: Non-toxic - Head Exam Head Exam: ATRAUMATIC, NORMAL INSPECTION - Eye Exam Eye Exam: EOMI, PERRL - ENT Exam ENT Exam: Mucous Membranes Moist - Respiratory Exam Respiratory Exam: Clear to Ausculation Bilateral, NORMAL BREATHING PATTERN - Cardiovascular Exam Cardiovascular Exam: +S1, +S2 - GI/Abdominal Exam GI & Abdominal Exam: Soft, Normal Bowel Sounds - Extremities Exam Extremities Exam: Normal Inspection - Neurological Exam Neurological Exam: Alert, Awake - Skin Skin Exam: Dry, Intact, Normal Color, Warm Assessment and Plan - Assessment and Plan (Free Text) Assessment: Pt is a 57 yo F with PMH diabetes, HTN, HLD, CAD s/p cardiac cath, asthma, arthritis, alzheimers who presented to ED with complaints of headache radiating to the neck and shoulders. Expressed suicidal ideation in the ED, was admitted to psych inpt. Headaches have been well controlled with motrin. Plan: 1) Headache -Improving, controlled with Motrin -Reviewed head CT on admission; stated that if symptoms persist, repeat -Since symptoms persisted until the next day, repeat head CT was done: No evidence of acute infarct. Minimal chronic white matter ischemic change. Otherwise unremarkable. -Continue with Motrin PRN 2)Diabetes -Holding glyburide due to low FS on 03/30 -Continue monitoring 3)Hypertension -Continue home meds 4)Alzheimer's/dementia -Continue home meds 5) Hyperlipidemia -Continue home meds 6) Depression -Mgmt by primary inpt psych team
[2017-04-01] MEDS ORDERED: POLYETHYLENE GLYCOL 3350 17 GM/Dose PACKET PO PRN (15:37)
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
[2017-04-01] MEDS: Alum-Mag Hydrox-Simethicone Susp (30 mL) PO PRN (17:33)
[2017-04-01] MEDS ORDERED: DiphenhydrAMINE 50 mg/ml Inj IM PRN (17:54)
[2017-04-01] MEDS ORDERED: Magnesium Hydroxide Susp 30 ml UD PO PRN (17:54)
[2017-04-01] MEDS ORDERED: Alum-Mag Hydrox-Simethicone Susp (30 mL) PO PRN (17:54)
[2017-04-01 19:48] VITALS: RESP 18
[2017-04-02] MEDS: Insulin Regular 100 units/ml SC SCH (06:44)
[2017-04-02 09:05] VITALS: BP 94/62; PULSE 64; TEMP 97.7
--- NOTE | 2017-04-02 11:53 | PCM.PYCHDC ---
Mental Status Examination - Mental Status Examination Orientation: Person, Place, Situation, Time Memory: Intact Mood: Depressed Affect: Constricted (brighter affect) Speech: Appropriate Attention: WNL Concentration: WNL Association: WNL Fund of Knowledge: WNL Formal Thought Process: No Impairment Description of patient's judgement and insight: fair Psychotic Thoughts and Behaviors: denies any hallucinations over last 24 hrs Suicidal Ideation: No Current Homicidal Ideation?: No Plan: pt denies suicidal or homicidal thoughts Discharge Summary - Discharge Note Reason for Hospitalization: depression, headaches, hallucinations Psychiatric History (includes Medical, Family, Personal Hx): depression treated by pcp Laboratory Data: Abnormal Lab Results 04/01/17 04/01/17 04/01/17 06:47 12:53 17:28 POC Glucose (mg/dL) 132 H 130 H 249 H Consultations:: List each consultation separately and include: 1. Reason for request. 2. Findings. 3. Follow-up Consultations: seen by family medicine Summary of Hospital Course include:: 1. Description of specific treatment plan utilized for patients during their course of treatmen. 2. Summarize the time- course for resolution of acute symptoms and/or regressed behaviors. 3. Describe issues identified and worked on during hospitalization. 4. Describe medication utilized. 5. Describe medical problems identified and treated. 6. Reassessment of suicide risk Summary of Hospital Course: pt seen with syriac speaking social media campaign manager pt is 57 yo female who is living with her family and has no previous psychiatric history. pt was being treated for depression by her pcp and recently referred to psychiatry, but did not follow up with appointment. pt states for the last few days she has had a bad headache. she reports low mood, poor energy, inability to sleep. she reports hearing a voice at times and feeling a strange presence over the last few days. she also feels her memory has been poor. she feels overwhelmed with her family and has had recent conflicts with and son. she has had suicidal thoughts, but does not want to act on those thoughts. pt was admitted to [facility] and oriented to the unit. pt seen with syriac speaking staff. pt started on medications to treat her mood and to help with sleep. she tolerated the medications. she was seen by family medicine who restarted her home medications and monitored. pt noted an improvement in her sleep and she had a brighter affect. she was denying suicidal or homicidal thoughts/plans or intent at the time of discharge. - Final Diagnosis (DSM 5) Condition upon Discharge: STABLE DSM 5: major depression recurrent moderate Disposition: HOME/ ROUTINE Follow-up Treatment Plan: follow up with aftercare as directed take medications as prescribed do not use alcohol, tobacco or other illicit substances call 911 if any suicidal or homicidal thoughts see your primary care doctor for your medical follow up appointments Prescriptions/Medication Reconciliation: QUEtiapine [SEROquel] 50 mg PO HS #30 tab Sertraline [Zoloft] 50 mg PO DAILY #30 tab - Smoking Cessation Smoking Cessation Medication prescribed: No - Antipsychotic Medications Pt discharged on 2 or more routine antipsychotic medications: No
== END 2017-04-02 14:41 | disposition home or self-care (01) | DRG 885 ==
LOC: H.ER 20:06 → H.ERHOLD 03-28 01:33 → UNDOADMIN 03-28 01:33 → H.ER 03-28 03:02 → H.PSYCH 03-28 07:02 → H.ERHOLD 03-28 07:02 → H.PSYCH 03-28 07:27
PROVIDERS: ADMIT Psychiatry & Neurology Psychiatry; ATTEND Psychiatry & Neurology Psychiatry
PROC: GZ51ZZZ Individual Psychotherapy, Behavioral (ICD-10-PCS; 2017-03-28)
PROC: GZHZZZZ Group Psychotherapy (ICD-10-PCS; principal; 2017-03-29)
DX: F33.1 Major depressive disorder, recurrent, moderate (principal); G30.9 Alzheimer's disease, unspecified; R45.851 Suicidal ideations; F02.80 Dementia in other diseases classified elsewhere, unspecified severity, without behavioral disturbance, psychotic disturbance, mood disturbance, and anxiety; E11.9 Type 2 diabetes mellitus without complications; E78.5 Hyperlipidemia, unspecified; E78.00 Pure hypercholesterolemia, unspecified; G47.00 Insomnia, unspecified; I10 Essential (primary) hypertension; I25.10 Atherosclerotic heart disease of native coronary artery without angina pectoris; J45.909 Unspecified asthma, uncomplicated; K59.00 Constipation, unspecified; M19.90 Unspecified osteoarthritis, unspecified site; Z79.82 Long term (current) use of aspirin; Z79.899 Other long term (current) drug therapy; Z86.73 Personal history of transient ischemic attack (TIA), and cerebral infarction without residual deficits; Z87.891 Personal history of nicotine dependence; Z90.710 Acquired absence of both cervix and uterus; R51 Headache

== ENCOUNTER 2017-07-31 20:45 | Emergency (ER) | payer MEDICARE, OTHER ==
[2017-07-31 20:45] VITALS: BMI 24.0
[2017-07-31 20:58] VITALS: BP 123/72; PULSE 75; RESP 18; TEMP 98.2; O2SAT 98
--- NOTE | 2017-07-31 21:21 | ED PDOC ---
HPI: Back Time Seen by Provider: 07/31/17 21:01 Chief Complaint (Nursing): Back Pain Chief Complaint (Provider): Back Pain History Per: Patient, Family (daughter at bedside is translating for patient in niuean) History/Exam Limitations: no limitations Onset/Duration Of Symptoms: Days (x 3) Current Symptoms Are (Timing): Still Present Additional Complaint(s): 57 year old female, accompanied by daughter, presents to the ED complaining of back pain for 3 days. Patient reports that pain radiates to both legs from time to time. Her pain becomes worse when she walks, better with rest. Patient has taken Tylenol earlier today for pain and had no relief. She denies any fall or injury. Patient also denies any dysuria or problems urinating. She reports having similar episodes of this back pain which resolved after receiving pain medication in the ER. She is not sure what meds she has taken in the past for back pain. No acute bowel or bladder dysfunction. PMD: Dr. Cameron Past Medical History Reviewed: Historical Data, Nursing Documentation, Vital Signs Vital Signs: Last Vital Signs Temp 98.2 F 07/31/17 20:48 Pulse 75 07/31/17 20:48 Resp 18 07/31/17 20:48 BP 123/72 07/31/17 20:48 Pulse Ox 98 07/31/17 20:48 - Medical History PMH: Asthma, Diabetes (type II), HTN, Hypercholesterolemia - Surgical History Surgical History: Hernia Repair (ventral, inguinal), (x3) - Family History Family History: States: No Known Family Hx - Living Arrangements Living Arrangements: With Family - Social History Current smoker - smoking cessation education provided: Yes Alcohol: None Drugs: Denies - Home Medications Home Medications: Ambulatory Orders Medication Instructions Recorded Donepezil Hydrochloride [Aricept] 5 mg PO DAILY #0 tab 09/03/14 Metoprolol Tartrate 25 mg PO DAILY #0 tab 09/03/14 Simvastatin [Zocor] 20 mg PO DAILY #0 tab 09/03/14 Lisinopril [Zestril] 1 tab PO DAILY 01/03/16 Sitagliptin Phosphate [Januvia] 1 tab PO DAILY 01/03/16 Albuterol HFA [Ventolin HFA 90 2 puff IH [id number] PRN #1 pkg 01/17/17 mcg/actuation (8 g)] Glucagon [Glucagen Diagnostic Kit] 0 mg IM STAT PRN vial 04/02/17 Haloperidol Lactate [Haldol] 5 mg IM Q4 PRN vial 04/02/17 Polyethylene Glycol 3350 [Miralax] 17 gm PO BID PRN packet 04/02/17 QUEtiapine [SEROquel] 50 mg PO HS #30 tab 04/02/17 Sertraline [Zoloft] 50 mg PO DAILY #30 tab 04/02/17 glyBURIDE [Micronase] 2.5 mg PO BID tab 04/02/17 metFORMIN [glucOPHAGE] 500 mg PO BID tab 04/02/17 Cyclobenzaprine [Cyclobenzaprine 10 mg PO TID PRN #20 tab 07/31/17 HCl] Naproxen [Naprosyn] 500 mg PO BID #20 tab 07/31/17 - Allergies Allergies/Adverse Reactions: Allergies Allergy/AdvReac Type Severity Reaction Status Date / Time iodine Allergy Verified 06/13/16 13:07 Penicillins Allergy Verified 06/13/16 13:07 Review of Systems ROS Statement: Except As Marked, All Systems Reviewed And Found Negative Constitutional: Negative for: Fever Gastrointestinal: Negative for: Nausea, Vomiting Genitourinary Female: Negative for: Dysuria, Frequency, Incontinence, Hematuria Musculoskeletal: Positive for: Back Pain Neurological: Negative for: Weakness, Numbness, Headache, Dizziness Physical Exam - Reviewed Nursing Documentation Reviewed: Yes Vital Signs Reviewed: Yes - Physical Exam Appears: Positive for: Well, Non-toxic, No Acute Distress Head Exam: Positive for: ATRAUMATIC, NORMAL INSPECTION, NORMOCEPHALIC Skin: Positive for: Normal Color Eye Exam: Positive for: Normal appearance Gastrointestinal/Abdominal: Positive for: Soft. Negative for: Tenderness, Distended, Guarding Back: Positive for: Normal Inspection, Other (diffuse tenderness across low lumbar region, negative bilateral straight leg raise) Extremity: Positive for: Normal ROM Neurologic/Psych: Positive for: Alert, Oriented - Laboratory Results Urine dip results: Negative for: Leukocyte Esterase, Blood, Nitrate, Ketones, Glucose, Bilirubin, Protein - ECG O2 Sat by Pulse Oximetry: 98 (RA) Pulse Ox Interpretation: Normal - Other Rad L/S Spine X-ray X-Ray: Interpreted by Me, Viewed By Me X-Ray Interpretation: degenerative changes, no fx, no dis Medical Decision Making Medical Decision Making: Time: 21:11 Clinical Impression:57 year old with back pain. Initial Plan: --Urine Dip --Flexeril 10 mg PO --Toradol 30 mg IM --LS Spine AP/Lat [RAD] Patient is aware of diagnostic testing results, all questions answered. Patient feels better after meds given in ED. Will d/c with rx naprosyn and flexeril. Advised PMD follow up in 2-3 days. Scribe Attestation: Documented by Lilia Mitchell, acting as a scribe for Adela Diamond PA-C Provider Scribe Attestation: All medical record entries made by the Scribe were at my direction and personally dictated by me. I have reviewed the chart and agree that the record accurately reflects my personal performance of the history, physical exam, medical decision making, and the department course for this patient. I have also personally directed, reviewed, and agree with the discharge instructions and disposition. Disposition - Clinical Impression Clinical Impression: Back pain, Back strain - Patient ED Disposition Is Patient to be Admitted: No Counseled Patient/Family Regarding: Studies Performed, Diagnosis, Need For Followup, Rx Given - Disposition Referrals: [facility] [Outside] Disposition: Routine/Home Disposition Time: 22:14 Condition: STABLE Additional Instructions: Take rx meds as directed. Follow up with primary care doctor for any persistent symptoms. Prescriptions: Cyclobenzaprine [Cyclobenzaprine HCl] 10 mg PO TID PRN #20 tab PRN Reason: Muscle Spasm Naproxen [Naprosyn] 500 mg PO BID #20 tab Instructions: Back Pain (ED) Forms: [employer] (Hungarian) Print Language: ARMENIAN
--- NOTE | 2017-08-01 08:47 | RAD ---
PROCEDURE: Radiographs of the Lumbar Spine. HISTORY: Back Pain. No history of recent/ related trauma provided Duration of symptoms: Unknown COMPARISON: No prior. FINDINGS: BONES: Normal alignment. No listhesis. No fracture. DISC SPACES: Unremarkable. OTHER FINDINGS: None. IMPRESSION: No acute findings related to/accounting for the clinical presentation. Concordant results with the preliminary interpretation rendered by the emergency department physician procedure.
== END 2017-07-31 23:18 | disposition home or self-care (01) ==
LOC: H.ER 20:45
DX: M54.9 Dorsalgia, unspecified (principal); E11.9 Type 2 diabetes mellitus without complications; E78.00 Pure hypercholesterolemia, unspecified; I10 Essential (primary) hypertension; J45.909 Unspecified asthma, uncomplicated; Z79.84 Long term (current) use of oral hypoglycemic drugs; Z88.0 Allergy status to penicillin
CPT/HCPCS: 72100; 96372; 99281; J1885

== ENCOUNTER 2018-04-26 11:25 | Emergency (ER) | payer MEDICARE, OTHER ==
[2018-04-26 11:31] VITALS: RESP 18; TEMP 98.1; O2SAT 100; BMI 26.5
[2018-04-26] MEDS ORDERED: Sodium Chloride 0.9% 1,000 ML IV STA (11:57)
--- NOTE | 2018-04-26 11:57 | ED PDOC ---
HPI: Abdomen Time Seen by Provider: 04/26/18 11:48 Chief Complaint (Nursing): Abdominal Pain Chief Complaint (Provider): abdominal pain History Per: Patient, Chairman President And Chief Executive Officer (el [phone]) Location Of Pain/Discomfort: RUQ, Epigastric Quality Of Discomfort: Sharp, Other (twisting) Associated Symptoms: Nausea, Loss Of Appetite. denies: Vomiting, Diarrhea, Back Pain Exacerbating Factors: None Alleviating Factors: None Additional Complaint(s): 58yo female c/o upper abd pain radiating to lower abdomen and chest for several days. Denies fever, hematemesis, melena, weakness or cough. Abnormal Vaginal Bleeding: No Past Medical History Reviewed: Historical Data, Nursing Documentation, Vital Signs Vital Signs: Last Vital Signs Temp 98.1 F 04/26/18 18:05 Pulse 71 04/26/18 18:05 Resp 18 04/26/18 18:05 BP 134/81 04/26/18 18:05 Pulse Ox 100 05/16/18 12:21 - Medical History PMH: Alzheimer's Disease, Asthma, CAD, Dementia, Diabetes (type II), HTN, Hypercholesterolemia, TIA Denies: HIV, Chronic Kidney Disease - Surgical History Surgical History: Hernia Repair (ventral, inguinal), (x3) Other surgeries: fibroids - Family History Family History: States: Unknown Family Hx - Immunization History Hx Tetanus Toxoid Vaccination: No Hx Influenza Vaccination: No Hx Pneumococcal Vaccination: No - Home Medications Home Medications: Ambulatory Orders Medication Instructions Recorded Metoprolol Tartrate 25 mg PO DAILY #0 tab 09/03/14 Lisinopril [Zestril] 1 tab PO DAILY 01/03/16 Aspirin 1 tab PO DAILY 09/26/17 Glyburide/Metformin HCl 2.5 mg PO DAILY 09/26/17 [Glucovance 5-500 mg Tablet] Lubiprostone [Amitiza] 1 tab PO BID 09/26/17 Metoprolol Succinate XL [Toprol XL] 1 tab PO DAILY 09/26/17 Prednisone [Deltasone] 1 tab PO DAILY 09/26/17 Tizanidine HCl [Zanaflex] 1 tab PO BID 09/26/17 Cu/Se/Vit A/Vit C/Vit E/Zinc 1 tab PO DAILY 10/19/17 [Ocuvite] Estradiol 0.5 mg PO DAILY 10/19/17 Dicyclomine [Bentyl] 10 mg PO TID PRN #12 cap 04/26/18 Ondansetron ODT [Zofran ODT] 4 mg PO Q6 PRN #10 odt 04/26/18 Ranitidine HCl [Zantac] 150 mg PO BID #20 tablet 04/26/18 - Allergies Allergies/Adverse Reactions: Allergies Allergy/AdvReac Type Severity Reaction Status Date / Time iodine Allergy URTICARIA Verified 04/26/18 11:49 Penicillins Allergy RASH Verified 04/26/18 11:49 Review of Systems ROS Statement: Except As Marked, All Systems Reviewed And Found Negative Constitutional: Negative for: Fever Cardiovascular: Negative for: Chest Pain, Palpitations Respiratory: Negative for: Shortness of Breath Gastrointestinal: Positive for: Nausea, Abdominal Pain Genitourinary Female: Negative for: Dysuria Musculoskeletal: Negative for: Neck Pain, Back Pain Skin: Negative for: Rash Neurological: Negative for: Weakness, Numbness, Headache Psych: Negative for: Suicidal ideation Physical Exam - Reviewed Nursing Documentation Reviewed: Yes Vital Signs Reviewed: Yes - Physical Exam Appears: Positive for: Well, Non-toxic, No Acute Distress Head Exam: Positive for: ATRAUMATIC, NORMAL INSPECTION, NORMOCEPHALIC Skin: Positive for: Normal Color, Warm, DRY Eye Exam: Positive for: EOMI, Normal appearance, PERRL ENT: Positive for: Normal ENT Inspection Neck: Positive for: Normal, Painless ROM Cardiovascular/Chest: Positive for: Regular Rate, Rhythm Respiratory: Positive for: CNT, Normal Breath Sounds Gastrointestinal/Abdominal: Positive for: Soft, Tenderness (mid and upper abd tenderness) Back: Positive for: Normal Inspection Extremity: Positive for: Normal ROM Neurologic/Psych: Positive for: Alert, Oriented. Negative for: Motor/Sensory Deficits - Laboratory Results Result Diagrams: 04/26/18 12:30 04/26/18 12:30 - ECG ECG: Positive for: Interpreted By Me ECG Rhythm: Positive for: Normal QRS, Normal ST Segment, Sinus Rhythm. Negative for: ST/T Changes Rate: 69 O2 Sat by Pulse Oximetry: 100 Pulse Ox Interpretation: Normal - CT Scan/US CT abd pelv and Abd US Other Rad Studies (CT/US): Radiology Report Reviewed Medical Decision Making Medical Decision Makin:57 Initial Plan: --labs --Pepcid 20 mg IV --Tylenol --NS IV --US 15:35 --Abd Pelvis CT 17:11 --Percocet 1 tab Improved over course ED stay Labs and imaging unremarkable for acute process requiring hospitalization. Requires followup in outpatient setting for further testing, indications for return to ER were discussed with patient. Disposition - Clinical Impression Clinical Impression: Abdominal pain - Patient ED Disposition Is Patient to be Admitted: No - Disposition Referrals: José Manuel Evans MD [Medical Doctor] - Disposition: Routine/Home Disposition Time: 18:05 Condition: STABLE Additional Instructions: Drink plenty of fluids, avoid spicy foods, alcohol and return to ER for any new or worsening symptoms. Followup with GI doctor as directed. Prescriptions: Dicyclomine [Bentyl] 10 mg PO TID PRN #12 cap PRN Reason: Gi Distress Ondansetron ODT [Zofran ODT] 4 mg PO Q6 PRN #10 odt PRN Reason: Nausea/Vomiting Ranitidine HCl [Zantac] 150 mg PO BID #20 tablet Instructions: Acute Abdomen (Belly Pain), Adult (DC) Forms: [facility] (Congolese) Print Language: GEORGIAN
[2018-04-26 12:46] LABS: BASO # 0.1 K/uL (0.0-0.2); BASO % 0.8 % (0.0-2.0); EOS # 0.1 K/uL (0.0-0.7); EOS % 1.7 % (0.0-4.0); HEMOGLOBIN 13.7 g/dL (12.0-16.0); LYMPH # 3.3 K/uL (1.0-4.3); LYMPH % 44.3 % (20.0-40.0); MEAN CORPUSCULAR HEMOGLOBIN 28.6 pg (27.0-31.0); MEAN CORPUSCULAR HGB CONC 34.1 g/dL (33.0-37.0); MEAN PLATELET VOLUME 10.6 fl (7.2-11.7); MONO # 0.4 K/uL (0.0-0.8); MONO % 5.4 % (0.0-10.0); NEUT # 3.5 K/uL (1.8-7.0); NEUT % 47.8 % (50.0-75.0); NRBC % 0.1 % (0.0-0.0); RBC 4.79 Mil/uL (3.80-5.20); RED CELL DISTRIBUTION WIDTH 14.4 % (11.5-14.5); WHITE BLOOD COUNT 7.4 K/uL (4.8-10.8)
[2018-04-26 12:47] LABS: SQUAMOUS EPITHIAL < 1 /hpf (0-5); URINE BILIRUBIN NEGATIVE (NEGATIVE); URINE BLOOD NEGATIVE (NEGATIVE); URINE CLARITY CLEAR (Clear); URINE COLOR YELLOW (YELLOW); URINE GLUCOSE (UA) NEG (Normal); URINE LEUKOCYTE ESTERASE NEG Leu/uL (Negative); URINE PROTEIN NEGATIVE (NEGATIVE); URINE UROBILINOGEN 0.2-1.0 mg/dL (0.2-1.0)
[2018-04-26 13:01] LABS: ALB/GLOB RATIO 1.4 (1.0-2.1); ALT/SGPT 28 U/L (9-52); AST/SGOT 22 U/L (14-36); BLOOD UREA NITROGEN 11 mg/dl (7-17); CALCIUM 9.1 mg/dL (8.4-10.2); GFR NON-AFRICAN AMERICAN > 60; LIPASE 208 U/L (23-300)
--- NOTE | 2018-04-26 14:21 | US ---
Date of service: 04/26/2018 HISTORY: upper abd pain COMPARISON: None. TECHNIQUE: Sonographic evaluation of the abdomen. FINDINGS: LIVER: Measures 16.0 cm. Diffuse but mildly increased echogenicity of the liver parenchyma suggests mild hepatic steatosis though other etiologies are possible. . No mass. No intrahepatic bile duct dilatation. GALLBLADDER: Unremarkable. No gallstones. COMMON BILE DUCT: Measures 0.3 mm. No stones. No dilatation. PANCREAS: The tail of the pancreas is obscured by overlying bowel gas with remainder unremarkable. RIGHT KIDNEY: Measures 9.5cm. Normal echogenicity. No calculus, mass, or hydronephrosis. LEFT KIDNEY: Measures 9.5cm. Normal echogenicity. No calculus, mass, or hydronephrosis. SPLEEN: Normal in size and contour. No mass. AORTA: No aneurysmal dilatation. IVC: Unremarkable. OTHER FINDINGS: None. IMPRESSION: Mild hepatic steatosis suggested though other etiologies are possible presenting as diffusely echogenic liver. No discrete hepatic mass or intrahepatic biliary dilatation. Liver size upper limits normal. Partial imaging of the pancreas.
--- NOTE | 2018-04-26 16:18 | CT ---
Date of service: 04/26/2018 PROCEDURE: CT Abdomen and Pelvis without intravenous contrast HISTORY: upper abd pain COMPARISON: 01/12/2016 TECHNIQUE: Without contrast.. Contrast dose: 0 Radiation dose: Total exam DLP = 364.95 mGy-cm. This CT exam was performed using one or more of the following dose reduction techniques: Automated exposure control, adjustment of the mA and/or kV according to patient size, and/or use of iterative reconstruction technique. FINDINGS: LOWER THORAX: Unremarkable. LIVER: Unremarkable. No gross lesion or ductal dilatation. GALLBLADDER AND BILE DUCTS: Unremarkable. PANCREAS: Unremarkable. No gross lesion or ductal dilatation. SPLEEN: Unremarkable. ADRENALS: Unremarkable. No mass. KIDNEYS AND URETERS: Unremarkable. No hydronephrosis. No solid mass. VASCULATURE: Unremarkable. No aortic aneurysm. BOWEL: No bowel obstruction. Mild retained stool. No abnormal bowel loops. APPENDIX: Unremarkable. Normal appendix. PERITONEUM: Unremarkable. No free fluid. No free air. LYMPH NODES: Shotty subcentimeter mesenteric nodes are seen associated with a circumscribed region of mildly increased attenuation within the small bowel mesenteric. 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 This is best demonstrated on series 3, images 67 through 86. BLADDER: Unremarkable. REPRODUCTIVE: Status post hysterectomy BONES: Normal prostate OTHER FINDINGS: None. IMPRESSION: Mild nonspecific mesenteric panniculitis. No other significant abnormality identified.
[2018-04-26] MEDS ORDERED: Oxycodone/Acetaminophen 5/325 mg Tab PO STA (17:01)
[2018-04-26 20:07] VITALS: BP 134/81
[2018-05-16 17:21] VITALS: PULSE 69
== END 2018-04-26 18:05 | disposition home or self-care (01) ==
LOC: H.ER 11:25
DX: R10.13 Epigastric pain (principal); E11.9 Type 2 diabetes mellitus without complications; F02.80 Dementia in other diseases classified elsewhere, unspecified severity, without behavioral disturbance, psychotic disturbance, mood disturbance, and anxiety; G30.9 Alzheimer's disease, unspecified; I10 Essential (primary) hypertension; J45.909 Unspecified asthma, uncomplicated; Z79.82 Long term (current) use of aspirin; Z86.73 Personal history of transient ischemic attack (TIA), and cerebral infarction without residual deficits; Z88.0 Allergy status to penicillin
CPT/HCPCS: 74176; 76700; 80053; 81003; 83690; 85025; 96374; 96375; 99285; J2405; J7030

== ENCOUNTER 2018-10-03 14:43 | Observation (INO) | payer MEDICAID, MEDICARE, OTHER ==
[2018-10-03 14:43] VITALS: BMI 26.5
--- NOTE | 2018-10-03 15:58 | ED PDOC ---
HPI: Chest Pain Time Seen by Provider: 10/03/18 15:18 Chief Complaint (Nursing): Chest Pain Chief Complaint (Provider): Chest Pain History Per: Teacher Ballet (Marcia int: [id number]) History/Exam Limitations: language barrier Onset/Duration Of Symptoms: Days (x2 ) Current Symptoms Are (Timing): Still Present Additional Complaint(s): 58 year old female with a past medical history of CAD, Neuropathy, gastritis, depression, diabetes, and arthritis, presents to the emergency department complaining of left sided chest pain that radiates to the back, associated with shortness of breath and vomiting x1, onset x2 days. Patient states she is unable to sleep because of the pain. She reports that she took an aspirin at home [employer]. Patient denies any fever or cough. PMD: Sindhu Ann Past Medical History Reviewed: Historical Data, Nursing Documentation, Vital Signs Vital Signs: Last Vital Signs Temp 98.1 F 10/03/18 14:54 Pulse 72 10/03/18 14:54 Resp 18 10/03/18 14:54 BP 132/76 10/03/18 14:54 Pulse Ox 100 10/03/18 14:54 - Medical History PMH: Alzheimer's Disease, Arthritis, Asthma, CAD, Dementia, Diabetes (type II), Gastritis, Hiatal Hernia, HTN, Hypercholesterolemia, TIA Denies: HIV, Chronic Kidney Disease Other PMH: neuropathy - Surgical History Surgical History: Hernia Repair (ventral, inguinal), (x3) Other surgeries: Stent. hysterectomy. thyroid - Family History Family History: States: Unknown Family Hx - Social History Current smoker - smoking cessation education provided: Yes (1 a day ) - Immunization History Hx Tetanus Toxoid Vaccination: No Hx Influenza Vaccination: No Hx Pneumococcal Vaccination: No - Home Medications Home Medications: Ambulatory Orders Medication Instructions Recorded RX: Lisinopril [Zestril] 1 tab PO DAILY 01/03/16 Metoprolol Succinate XL [Toprol XL] 1 tab PO DAILY 09/26/17 RX: Aspirin 1 tab PO DAILY 09/26/17 Cu/Se/Vit A/Vit C/Vit E/Zinc 1 tab PO DAILY 10/19/17 [Ocuvite] RX: Atorvastatin [Lipitor] 20 mg PO DAILY 10/03/18 RX: Pantoprazole [Protonix EC Tab] 40 mg PO DAILY 10/03/18 RX: Simvastatin [Zocor] 20 mg PO DAILY 10/03/18 RX: metFORMIN [glucOPHAGE] 500 mg PO DAILY 10/03/18 SITagliptin [Januvia] 100 mg PO DAILY 10/03/18 - Allergies Allergies/Adverse Reactions: Allergies Allergy/AdvReac Type Severity Reaction Status Date / Time iodine Allergy URTICARIA Verified 10/03/18 14:49 Penicillins Allergy RASH Verified 10/03/18 14:49 SHERRI Risk Score for UA/NSTEMI - SHERRI Risk Score Age > 64: NO 3 or more CAD Risk Factors: YES Known CAD (Stenosis greater than 50%): YES Aspirin use in past 7 days: YES Severe Angina: NO EKG ST changes greater than 0.5mm: NO Positive Cardiac Marker: NO SHERRI Score: 3 Risk %: 13% Review of Systems ROS Statement: Except As Marked, All Systems Reviewed And Found Negative Constitutional: Negative for: Fever Cardiovascular: Positive for: Chest Pain Respiratory: Positive for: Shortness of Breath. Negative for: Cough Musculoskeletal: Positive for: Back Pain Skin: Negative for: Rash Physical Exam - Reviewed Nursing Documentation Reviewed: Yes Vital Signs Reviewed: Yes - Physical Exam Appears: Positive for: Non-toxic, No Acute Distress Head Exam: Positive for: ATRAUMATIC, NORMOCEPHALIC Skin: Positive for: Normal Color, Warm, Dry Eye Exam: Positive for: Normal appearance, EOMI, PERRL ENT: Positive for: Normal ENT Inspection Neck: Positive for: Normal, Painless ROM, Supple Cardiovascular/Chest: Positive for: Regular Rate, Rhythm. Negative for: Murmur Respiratory: Positive for: Normal Breath Sounds. Negative for: Respiratory Distress Gastrointestinal/Abdominal: Positive for: Normal Exam, Soft. Negative for: Tenderness Back: Positive for: Normal Inspection. Negative for: L CVA Tenderness, R CVA Tenderness, Vertebral Tenderness Extremity: Positive for: Normal ROM. Negative for: Pedal Edema, Deformity Neurologic/Psych: Positive for: Alert, Oriented. Negative for: Motor/Sensory Deficits - Laboratory Results Result Diagrams: 10/03/18 17:04 10/03/18 16:50 - ECG ECG Rhythm: Positive for: Sinus Rhythm (normal) Rate: 72 O2 Sat by Pulse Oximetry: 100 (RA) Pulse Ox Interpretation: Normal Medical Decision Making Medical Decision Making: Time: 1604 Impression: Chest pain, likely admission for chest pain observation Plan: --EKG --CMP --Troponin I --CBC with differential --Chest x-ray 2 views Time: 1653 Chest X-Ray FINDINGS: LUNGS: No active pulmonary disease. PLEURA: No significant pleural effusion identified. No pneumothorax apparent. CARDIOVASCULAR: Minor aortic atherosclerotic calcification present. Normal cardiac size. No pulmonary vascular congestion. OSSEOUS STRUCTURES: Minor multilevel degenerative spondylosis of the thoracic spine VISUALIZED UPPER ABDOMEN: Normal. OTHER FINDINGS: None. IMPRESSION: No active disease. Time: 1758 --Patient to be admitted for chest pain. Case discussed with Dr. Curtis, medical services. Will consult cardiology paint line production supervisor. Time: 1832 --Paged Dr. Weston, Cardiology paint line production supervisor. Time: 1844 --Case discussed with Dr. Weston. he will see pt pt feels better aftre nitro. Scribe Attestation: Documented by Harshad Benedict, acting as a scribe for Dustin Montoya MD Provider Scribe Attestation: All medical record entries made by the Scribe were at my direction and personally dictated by me. I have reviewed the chart and agree that the record accurately reflects my personal performance of the history, physical exam, medical decision making, and the department course for this patient. I have also personally directed, reviewed, and agree with the discharge instructions and disposition. Disposition - Clinical Impression Clinical Impression: Acute chest pain - Patient ED Disposition Is Patient to be Admitted: Yes - Disposition Disposition Time: 17:59 Condition: FAIR
--- NOTE | 2018-10-03 16:58 | RAD ---
Date of service: 10/03/2018 HISTORY: Chest pain COMPARISON: Made with prior chest radiograph 03/27/2017. TECHNIQUE: Chest PA and lateral FINDINGS: LUNGS: No active pulmonary disease. PLEURA: No significant pleural effusion identified. No pneumothorax apparent. CARDIOVASCULAR: Minor aortic atherosclerotic calcification present. Normal cardiac size. No pulmonary vascular congestion. OSSEOUS STRUCTURES: Minor multilevel degenerative spondylosis of the thoracic spine VISUALIZED UPPER ABDOMEN: Normal. OTHER FINDINGS: None. IMPRESSION: No active disease.
[2018-10-03 17:04] LABS: BASO % 0.8 % (0.0-2.0); EOS # 0.1 K/uL (0.0-0.7); EOS % 2.3 % (0.0-4.0); HEMOGLOBIN 12.9 g/dL (12.0-16.0); LYMPH # 2.6 K/uL (1.0-4.3); LYMPH % 53.9 % (20.0-40.0); MEAN CELL VOLUME 83.2 fl (81.0-99.0); MEAN CORPUSCULAR HEMOGLOBIN 28.2 pg (27.0-31.0); MEAN CORPUSCULAR HGB CONC 33.9 g/dL (33.0-37.0); MEAN PLATELET VOLUME 10.6 fl (7.2-11.7); MONO # 0.3 K/uL (0.0-0.8); MONO % 6.8 % (0.0-10.0); NEUT # 1.7 K/uL (1.8-7.0); NEUT % 36.2 % (50.0-75.0); NRBC % 0.1 % (0.0-0.0); RBC 4.59 Mil/uL (3.80-5.20); RED CELL DISTRIBUTION WIDTH 14.4 % (11.5-14.5); WHITE BLOOD COUNT 4.8 K/uL (4.8-10.8)
[2018-10-03 17:15] LABS: ALB/GLOB RATIO 1.3 (1.0-2.1); ALBUMIN 3.9 g/dL (3.5-5.0); ALT/SGPT 30 U/L (9-52); AST/SGOT 18 U/L (14-36); BLOOD UREA NITROGEN 14 mg/dl (7-17); CALCIUM 9.3 mg/dL (8.4-10.2); GFR NON-AFRICAN AMERICAN > 60
--- NOTE | 2018-10-03 22:29 | CARD ---
APPROVED REPORT Date of service: 10/03/2018 EKG Measurement Heart [id number] MD [id number] <Conclusion> Normal sinus rhythm Minor NDSTT abnormalities Borderline abnormal ECG
[2018-10-04 00:02] LABS: HDL CHOLESTEROL 48 MG/DL (30-70)
[2018-10-04 00:13] LABS: LDL CHOLESTEROL 72 mg/dL (0-129)
[2018-10-04 00:19] LABS: BARBITURATES, UR NEGATIVE (NEGATIVE); BENZODIAZEPINES, UR NEGATIVE (NEGATIVE); OPIATES, UR NEGATIVE (NEGATIVE); PHENCYCLIDINE, UR NEGATIVE (NEGATIVE)
--- NOTE | 2018-10-04 01:44 | CON ---
DATE: 10/03/2018 REASON FOR CONSULTATION: Chest pain. History was obtained from the patient via patient's son at the bedside as an hourly sign language interpreter. HISTORY OF PRESENT ILLNESS: The patient is a 58-year-old female who has unknown cardiac history in the past. The most recent cardiac catheterization was performed 5 years ago at [facility]. The patient is not clear about that she underwent intervention at that time or not. She presents with chest pain which she describes as involving the left side of the face, left side of the chest, left shoulder, and left upper abdomen. The patient denies any associated diaphoresis or shortness of breath. The patient reported mild productive cough. SOCIAL HISTORY: Nonsmoker. Nondrinker. She is , lives with her . PAST MEDICAL HISTORY: History of depression, diabetes mellitus, arthritis, neuropathy, and questionable history of coronary artery disease. REVIEW OF SYSTEMS: No nausea or vomiting. No fever or chills. The patient complains of mild depression, but denies any suicidal ideations. PHYSICAL EXAMINATION: GENERAL: The patient is a middle-aged female who does not appear to be in any distress. VITAL SIGNS: Blood pressure 122/81, heart rate 68, temperature 97.9, and respirations 16. HEENT: Normocephalic. NECK: No JVD. CHEST: Clear. HEART: S1 and S2, regular. ABDOMEN: Soft. EXTREMITIES: No edema. No calf tenderness. LABORATORY DATA: Hemoglobin and hematocrit 12.9 and 38.2. White count and platelet count are within normal limits. SMA-7 is within normal limit, except for glucose is 253. One set of troponin is not elevated. Chest x-ray was unremarkable. EKG revealed normal sinus rhythm at the rate of 72. ASSESSMENT: 1. Chest pain, rule out myocardial infarction. 2. Diabetes melitis. 3. History of depression. RECOMMENDATIONS: Admit the patient' to telemetry. Start aspirin 81 mg once a day, Lipitor 20 mg once a day, subcutaneous heparin mg once a day. Obtain serum lipid profile and D-dimer and an echocardiogram. I will attempt to obtain the most recent cardiac catheterization report performed 5 years ago according to the patient at [facility]. Fritz Hannallah, MD
--- NOTE | 2018-10-04 06:46 | CP.PCM.HP ---
<Olivia Ardon - Last Filed: 10/04/18 11:35> History of Present Illness - History of Present Illness History of Present Illness: This is 57 yo F with PMH diabetes, HTN, HLD, CAD s/p cardiac cath, DM-II, asthma, arthritis, alzheimers and depression who admitted to [facility] for eval and treatment of 2 months history of sub-sternal chest pain. Patient reports pain since last 2 months, on and off but last 2-3 days its constant, 5/10, sometimes radiates to her left arm, moving around makes her pain worse, no change with respiration, burning in nature as per patient, associated with palpitations and blurred vision. denies any SOB, dizziness, abdominal pain, urinary symptoms and states she generally feels weak. PMH: Alzheimers, HTN, HLD, Dm-II, asthma, arthritis, Allergies: penicillin (anaphylactic as per pt description "can't breathe and lose consciousness") Social Hx: former smoker for over 20 yrs, currently smokes 1-2 cig /day social EtOH 2-3 drinks on social occasion denies drugs, painkillers Surg Hx: x3, hernia repair Family Hx: grandmother and mother- stroke. sister- [place]. LMP- 22 y ago, . Present on Admission - Present on Admission Any Indicators Present on Admission: No History of DVT/PE: No History of Uncontrolled Diabetes: Yes Review of Systems - Constitutional Constitutional: absent: Daytime Sleepiness, Headache, Snoring - EENT Eyes: Blurred Vision. absent: Blind Spots, Dry Eye, Exophthalmos, Floaters Ears: absent: Decreased Hearing Nose/Mouth/Throat: absent: Nasal Congestion, Nasal Obstruction, Post Nasal Drip, Dry Mouth - Breasts Breasts: absent: Skin Changes - Cardiovascular Cardiovascular: Chest Pain, Chest Pain at Rest, Chest Pain with Activity, Palpitations. absent: Diaphoresis, Dyspnea, Dyspnea on Exertion, Edema - Respiratory Respiratory: absent: Cough, Hemoptysis - Gastrointestinal Gastrointestinal: absent: Abdominal Pain - Genitourinary Genitourinary: absent: Change in Urinary Stream - Neurological Neurological: absent: Abnormal Gait - Psychiatric Psychiatric: Anxiety Past Patient History - Infectious Disease Hx of Infectious Diseases: None - Tetanus Immunizations Tetanus Immunization: Unknown - Past Medical History & Family History Past Medical History?: Yes - Past Social History Smoking Status: Current Some Days Smoker - CARDIAC Hx Hypercholesterolemia: Yes Hx Hypertension: Yes - PULMONARY Hx Asthma: Yes - NEUROLOGICAL Hx Alzheimer's Disease: Yes Hx Dementia: Yes Hx Transient Ischemic Attacks (TIA): Yes - HEENT Hx HEENT Problems: No - RENAL Hx Chronic Kidney Disease: No - ENDOCRINE/METABOLIC Hx Endocrine Disorders: Yes - HEMATOLOGICAL/ONCOLOGICAL Hx Human Immunodeficiency Virus (HIV): No - INTEGUMENTARY Hx Dermatological Problems: No - MUSCULOSKELETAL/RHEUMATOLOGICAL Hx Arthritis: Yes - GASTROINTESTINAL Hx Gastritis: Yes - GENITOURINARY/GYNECOLOGICAL Hx Genitourinary Disorders: No - PSYCHIATRIC Hx Psychophysiologic Disorder: No Hx Substance Use: No - SURGICAL HISTORY Hx Cardiac Catheterization: Yes (8-10YRS AGO) Hx Section: Yes (X3) Hx Herniorrhaphy: Yes Hx Hysterectomy: Yes Other/Comment: Fibroids - ANESTHESIA Hx Anesthesia: Yes Hx Anesthesia Reactions: No Hx Malignant Hyperthermia: No Meds Allergies/Adverse Reactions: Allergies Allergy/AdvReac Type Severity Reaction Status Date / Time iodine Allergy URTICARIA Verified 10/03/18 14:49 Penicillins Allergy RASH Verified 10/03/18 14:49 Physical Exam - Constitutional Appears: No Acute Distress - Head Exam Head Exam: NORMAL INSPECTION - Eye Exam Eye Exam: Normal appearance, PERRL Pupil Exam: NORMAL ACCOMODATION - ENT Exam ENT Exam: Mucous Membranes Moist - Neck Exam Neck exam: Positive for: Normal Inspection - Respiratory Exam Respiratory Exam: Clear to Auscultation Bilateral, NORMAL BREATHING PATTERN. absent: Rhonchi, Wheezes, Respiratory Distress - Cardiovascular Exam Cardiovascular Exam: REGULAR RHYTHM, +S1, +S2. absent: Bradycardia, T achycardia, JVD - GI/Abdominal Exam GI & Abdominal Exam: Normal Bowel Sounds, Soft. absent: Distended, Tenderness - Extremities Exam Extremities exam: Negative for: calf tenderness - Back Exam Back exam: NORMAL INSPECTION. absent: CVA tenderness (L), CVA tenderness (R) - Neurological Exam Neurological exam: Alert, Oriented x3 - Psychiatric Exam Psychiatric exam: Normal Affect - Skin Skin Exam: Normal Color Results - Vital Signs Recent Vital Signs: Last Vital Signs Temp 98.1 F 10/04/18 04:47 Pulse 69 10/04/18 04:47 Resp 18 10/04/18 04:47 BP 111/67 10/04/18 04:47 Pulse Ox 100 10/04/18 04:47 - Labs Result Diagrams: 10/03/18 17:04 10/03/18 16:50 Labs: Laboratory Results - last 24 hr 10/03/18 10/03/18 10/03/18 16:50 17:04 22:36 WBC 4.8 RBC 4.59 Hgb 12.9 Hct 38.2 MCV 83.2 MCH 28.2 MCHC 33.9 RDW 14.4 Plt Count 152 MPV 10.6 Neut % (Auto) 36.2 L Lymph % (Auto) 53.9 H [place] % (Auto) 6.8 Eos % (Auto) 2.3 Baso % (Auto) 0.8 Neut # (Auto) 1.7 L Lymph # (Auto) 2.6 [place] # (Auto) 0.3 Eos # (Auto) 0.1 Baso # (Auto) 0.0 D-Dimer, Quantitative Sodium 138 Potassium 4.3 Chloride 99 Carbon Dioxide 28 Anion Gap 15 BUN 14 Creatinine 0.7 Est GFR ( Amer) > 60 Est GFR (Non-Af Amer) > 60 POC Glucose (mg/dL) 384 H Random Glucose 253 H Calcium 9.3 Total Bilirubin 0.1 L AST 18 ALT 30 Alkaline Phosphatase 65 Troponin I 0.0470 Total Protein 6.8 Albumin 3.9 Globulin 2.9 Albumin/Globulin Ratio 1.3 Triglycerides Cholesterol LDL Cholesterol Direct HDL Cholesterol Urine Opiates Screen Urine Methadone Screen Ur Barbiturates Screen Ur Phencyclidine Scrn Ur Amphetamines Screen U Benzodiazepines Scrn U Oth Cocaine Metabols U Cannabinoids Screen 10/03/18 10/03/18 10/04/18 23:30 23:30 00:15 WBC RBC Hgb Hct MCV MCH MCHC RDW Plt Count MPV Neut % (Auto) Lymph % (Auto) [place] % (Auto) Eos % (Auto) Baso % (Auto) Neut # (Auto) Lymph # (Auto) [place] # (Auto) Eos # (Auto) Baso # (Auto) D-Dimer, Quantitative 100 Sodium Potassium Chloride Carbon Dioxide Anion Gap BUN Creatinine Est GFR ( Amer) Est GFR (Non-Af Amer) POC Glucose (mg/dL) Random Glucose Calcium Total Bilirubin AST ALT Alkaline Phosphatase Troponin I Total Protein Albumin Globulin Albumin/Globulin Ratio Triglycerides 295 H D Cholesterol 156 LDL Cholesterol Direct 72 HDL Cholesterol 48 Urine Opiates Screen Negative Urine Methadone Screen Negative Ur Barbiturates Screen Negative Ur Phencyclidine Scrn Negative Ur Amphetamines Screen Negative U Benzodiazepines Scrn Negative U Oth Cocaine Metabols Negative U Cannabinoids Screen Negative Assessment & Plan - Assessment and Plan (Free Text) Assessment: A/P: 57 yo F with PMH diabetes, HTN, HLD, CAD s/p cardiac cath, DM-II, asthma, arthritis, alzheimers and depression who admitted to [facility] for eval and treatment of 2 months history of sub-sternal chest pain. - EKG: NSR, CXR: no acute disease - Trop x 2 negative, f/u trop x 1 - CBC, CMP and d.dime and urine tox WNL. Lipids: TG 295 - Consult cardiology, f/u recommendations - C/w home medications: Aspirin, lipitor, Lisinopril, Metformin, Metoprolol, Januvia and PPI - Lovenox SC daily - Accu checks/ Hypoglycemic protocol - F/u Echo - Consider stress test - discharge if cleared by cardiology Case discussed with Dr. Curtis <Dionisio Curtis - Last Filed: 10/05/18 09:08> Results - Vital Signs Recent Vital Signs: Last Vital Signs Temp 97.9 F 10/05/18 08:00 Pulse 70 10/05/18 08:22 Resp 18 10/05/18 08:00 BP 101/66 10/05/18 08:22 Pulse Ox 99 10/05/18 08:00 - Labs Result Diagrams: 10/03/18 17:04 10/03/18 16:50 Labs: Laboratory Results - last 24 hr 10/04/18 10/04/18 10/04/18 11:27 13:20 21:21 POC Glucose (mg/dL) 273 H 175 H Troponin I 0.0500 10/04/18 21:52 POC Glucose (mg/dL) 169 H Troponin I Assessment & Plan - Assessment and Plan (Free Text) Assessment: Patient was personally seen and examined by me in rounds with residents. Available labs and diagnostic data reviewed. Case, Patient's condition and management plan discussed with residents in rounds. Agree with resident's progress note. Plan: As ordered.
[2018-10-04] MEDS ORDERED: Enoxaparin 30 mg Syringe SC SCH (09:00)
[2018-10-04] MEDS ORDERED: Glucagon Recombinant 1 mg Inj IM PRN (11:20)
[2018-10-04] MEDS ORDERED: Dextrose 50% SYRINGE Inj (50 ml) IV PRN (11:20)
[2018-10-04] MEDS: Insulin Lispro (humaLOG) 100 Units/ml Inj SC SCH ×3 (11:30→21:54)
[2018-10-04] MEDS: Enoxaparin 40 mg Syringe SC SCH (12:54)
[2018-10-04] MEDS: Pantoprazole 40 mg EC Tab PO SCH (12:55)
[2018-10-04] MEDS: Metoprolol Succinate 25 mg XL Tab PO SCH (12:55)
--- NOTE | 2018-10-04 22:04 | PN ---
DATE: 10/04/2018 FOLLOWUP SUBJECTIVE: The patient is still complaining of discomfort in the left side of the head, left shoulder and left side of the chest. She denies any dizziness. No reported ventricular arrhythmia. PHYSICAL EXAMINATION: VITAL SIGNS: Blood pressure 118/72, heart rate 77, temperature 98.5, respirations 20. HEENT: Normocephalic. CHEST: Clear. HEART: S1 and S2, regular. EXTREMITIES: No edema. LABORATORY DATA: Urine drug screen is negative. Three sets of troponin are not in elevated range. Triglycerides are elevated at 295. D-dimer is within normal limit. ASSESSMENT: 1. Atypical chest pain, myocardial infarction is ruled out. 2. Diabetes mellitus. 3. History of depression. RECOMMENDATIONS: Continue current aspirin, Glucophage, Lipitor, prophylactic subcutaneous Lovenox, Toprol-XL and Vistaril. I will review the echocardiogram study performed today. Fritz Weston MD
--- NOTE | 2018-10-04 23:11 | CARD ---
APPROVED REPORT Date of service: 10/04/2018 EXAM: Two-dimensional and M-mode echocardiogram with Doppler and color Doppler. Other Information Quality : GoodRhythm : NSR INDICATION Chest Pain 2D DIMENSIONS IVSd1.24 (0.7-1.1cm)LVDd4.44 (3.9-5.9cm) LVOT Diameter1.82 (1.8-2.4cm)PWd1.01 (0.7-1.1cm) IVSs1.88 (0.8-1.2cm)LVDs2.64 (2.5-4.0cm) FS (%) 40.6 %PWs1.24 (0.8-1.2cm) M-Mode DIMENSIONS Left Atrium (MM)3.79 (2.5-4.0cm)IVSd0.85 (0.7-1.1cm) Aortic Root2.97 (2.2-3.7cm)LVDd5.50 (4.0-5.6cm) Aortic Cusp Exc.1.94 (1.5-2.0cm)PWd1.38 (0.7-1.1cm) IVSs2.09 cmFS (%) 49 % LVDs2.79 (2.0-3.8cm)PWs1.79 cm Aortic Valve AoV Peak Rgzcrfkr020.4cm/sAoV VTI28.8cmAO Peak GR.8mmHg LVOT Peak Gemrxfxy640.8cm/sLVOT VTI22.95cmAO Mean GR.4mmHg BERTRAND (VMAX)1.05dq5SLI (VTI)1.10cm2 Mitral Valve MV E Hybedmxs51.1cm/sMV DECEL [id number] A Hqwotbjo06.2cm/s MV OOB95qdI/A ratio1.3MVA (PHT)4.02cm2 TDI Lateral E' Peak V11.24cm/sMedial E' Peak V7.09cm/sE/Lateral E'6.6 E/Medial E'10.5 Tricuspid Valve TR Peak Zatgygzf293yb/sRAP QQBBFTJT75sgJkDA Peak Gr.25mmHg [id number] LEFT VENTRICLE The left ventricle is normal size. There is borderline concentric left ventricular hypertrophy. The left ventricular systolic function is normal. The estimated ejection fraction is 60-65% No regional wall motion abnormalities noted.. The left ventricular diastolic function is normal. No left ventricle thrombus noted on this study. There is no ventricular septal defect visualized. There is no left ventricular aneurysm. There is no mass noted in the left ventricle. RIGHT VENTRICLE The right ventricle is normal size. There is normal right ventricular wall thickness. The right ventricular systolic function is normal. ATRIA The left atrium size is normal. The right atrium size is normal. The interatrial septum is intact with no evidence for an atrial septal defect. AORTIC VALVE The aortic valve is normal in structure. No aortic regurgitation is present. There is no aortic valvular stenosis. There is no aortic valvular vegetation. MITRAL VALVE The mitral valve is normal in structure. There is no evidence of mitral valve prolapse. There is no mitral valve stenosis. There is trace to mild mitral valve regurgitation noted. TRICUSPID VALVE The tricuspid valve is normal in structure. There is mild tricuspid valve regurgitation noted. RVSP is calculated at 30 mm Hg. There is no tricuspid valve prolapse or vegetation. There is no tricuspid valve stenosis. PULMONIC VALVE The pulmonary valve is normal in structure. There is no pulmonic valvular regurgitation. There is no pulmonic valvular stenosis. GREAT VESSELS The aortic root is normal in size. The ascending aorta is normal in size. The pulmonary artery is normal. The IVC is normal in size and collapses >50% with inspiration. PERICARDIAL EFFUSION There is no pericardial effusion. There is no pleural effusion. <Conclusion> There is borderline concentric left ventricular hypertrophy. The estimated ejection fraction is 60-65% The left ventricular diastolic function is normal. The left atrium size is normal. There is trace to mild mitral valve regurgitation noted. There is mild tricuspid valve regurgitation noted. RVSP is calculated at 30 mm Hg.
[2018-10-05 05:20] VITALS: RESP 18
[2018-10-05] MEDS: Pantoprazole 40 mg EC Tab PO SCH (08:22)
[2018-10-05] MEDS: Metoprolol Succinate 25 mg XL Tab PO SCH (08:22)
[2018-10-05] MEDS: Enoxaparin 40 mg Syringe SC SCH (08:22)
[2018-10-05] MEDS ORDERED: Multivitamin With Minerals Tab PO SCH (09:00)
[2018-10-05] MEDS: Insulin Lispro (humaLOG) 100 Units/ml Inj SC SCH (11:49)
[2018-10-05 11:53] VITALS: BP 104/66
[2018-10-05 12:03] VITALS: PULSE 73; TEMP 97.8; O2SAT 100
--- NOTE | 2018-10-05 12:07 | PN ---
DATE: 10/05/2018 SUBJECTIVE: The patient was seen and examined. Interim events noted. Consults noted and appreciated. Cardiology followup and interventions noted and appreciated. The patient remains in progressive care unit and telemetry monitoring. The patient feels okay. Denies any specific complaint. No chest pain. No shortness of breath. . PHYSICAL EXAMINATION: GENERAL: The patient is in no acute distress. VITAL SIGNS: Stable. HEART: S1, S2 normal and regular. LUNGS: Good bilateral air exchange. ABDOMEN: Soft and nontender. EXTREMITIES: No edema. No calf swelling. No tenderness. No acute ischemia. CENTRAL NERVOUS SYSTEM: Essentially unchanged. DIAGNOSTIC DATA: Available diagnostic data reviewed. ASSESSMENT: Overall, the patient's general medical condition is stable. PLAN: As ordered. Telemetry monitoring does not show significant arrhythmias. Dionisio Curtis MD
--- NOTE | 2018-10-05 18:01 | PN ---
DATE: 10/05/2018 SUBJECTIVE: The patient denies any chest pain or shortness of breath. PHYSICAL EXAMINATION: VITAL SIGNS: Blood pressure 104/66, heart rate 73, temperature 97.8, and respirations 18. HEENT: Normocephalic. CHEST: Clear. HEART: S1 and S2, regular. EXTREMITIES: No edema. LABORATORY DATA: Echocardiographic study revealed borderline concentric LVH with normal ejection fraction, normal left atrial size, and [id number] tricuspid insufficiency. ASSESSMENT: 1. Chest pain, myocardial infarction is ruled out. 2. History of depression. 3. Diabetes mellitus. RECOMMENDATIONS: The patient can be discharged home from the cardiac point of view on aspirin, Lipitor, and Toprol XL as well as Zestril and exercise stress test; she will be scheduled as an outpatient. Fritz Wetson MD
== END 2018-10-05 13:30 | disposition home or self-care (01) ==
LOC: H.ER 14:43 → H.ERHOLD 17:57 → H.TEL 22:16
PROVIDERS: ADMIT Internal Medicine; ATTEND Internal Medicine
DX: R07.89 Other chest pain (principal); I10 Essential (primary) hypertension; I25.10 Atherosclerotic heart disease of native coronary artery without angina pectoris; J45.909 Unspecified asthma, uncomplicated; M19.90 Unspecified osteoarthritis, unspecified site; Z82.3 Family history of stroke; Z86.73 Personal history of transient ischemic attack (TIA), and cerebral infarction without residual deficits; D25.9 Leiomyoma of uterus, unspecified; G62.9 Polyneuropathy, unspecified; K29.70 Gastritis, unspecified, without bleeding; K44.9 Diaphragmatic hernia without obstruction or gangrene; E11.40 Type 2 diabetes mellitus with diabetic neuropathy, unspecified; E78.00 Pure hypercholesterolemia, unspecified; E78.5 Hyperlipidemia, unspecified; F02.80 Dementia in other diseases classified elsewhere, unspecified severity, without behavioral disturbance, psychotic disturbance, mood disturbance, and anxiety; F17.200 Nicotine dependence, unspecified, uncomplicated; F32.9 Major depressive disorder, single episode, unspecified; G30.9 Alzheimer's disease, unspecified
CPT/HCPCS: 36415; 71046; 80053; 80061; 82948; 84484; 85025; 85378; 93005; 93306; 99285; G0378; G0480; J1650